=== PATIENT | female | born 1965 | race Caucasian/White ===

== ENCOUNTER 2020-04-11 12:46 | Inpatient (IN) | payer OTHER ==
[~2020-04-11] VITALS: Ht 162.6 cm; Wt 105.7 kg
[2020-04-11] MEDS ORDERED: ASPIRIN 325 MG TABLET PO ONE (13:00)
[2020-04-11] MEDS ORDERED: IV NORMAL SALINE 1000ML BAG 1,000 ML IV ONE (13:00)
[2020-04-11] MEDS ORDERED: DEXAMETHASONE SOD PHOS 4 MG/ML VIAL IVP ONE (13:00)
[2020-04-11] MEDS ORDERED: diphenhydrAMINE 50 MG/ML VIAL IVP ONE (13:15)
[2020-04-11] MEDS ORDERED: METOCLOPRAMIDE HCL 10 MG/2 ML VIAL. IVP ONE (13:15)
[2020-04-11] MEDS ORDERED: DEXAMETHASONE SOD PHOS 20 MG/5 ML VIAL. ONE (13:16)
[2020-04-11 13:31] LABS: BASO # 0.1 x10^3/uL (0.0-0.2); BASO % 1 % (0-3); EOS # 0.1 x10^3/uL (0.0-0.7); EOS % 1 % (0-3); HEMATOCRIT 42.8 % (36.0-47.0); HEMOGLOBIN 14.4 g/dL (12.0-15.5); LYMPH # 1.4 x10^3/uL (1.0-4.8); LYMPH % 13 % (24-48); MEAN CORPUSCULAR HEMOGLOBIN 28 pg (25-35); MEAN CORPUSCULAR HGB CONC 34 g/dL (31-37); MEAN CORPUSCULAR VOLUME 82 fL (79-100); MONO # 0.5 x10^3/uL (0.0-1.1); MONO % 5 % (0-9); NEUT # 8.9 x10^3/uL (1.8-7.7); NEUT % 81 % (31-73); PLATELET COUNT 281 x10^3/uL (140-400); RED BLOOD COUNT 5.23 x10^6/uL (3.50-5.40); RED CELL DISTRIBUTION WIDTH 13.9 % (11.5-14.5)
[2020-04-11 13:43] LABS: CALCIUM 9.3 mg/dL (8.5-10.1); CREATININE 0.8 mg/dL (0.6-1.0); GFR 75.3; POTASSIUM 3.2 mmol/L (3.5-5.1)
[2020-04-11 13:49] LABS: ALBUMIN 4.2 g/dL (3.4-5.0); ALBUMIN/GLOBULIN RATIO 1.1 (1.0-1.7); TOTAL BILIRUBIN 0.6 mg/dL (0.2-1.0); TOTAL PROTEIN 8.1 g/dL (6.4-8.2)
[2020-04-11 13:54] LABS: BILIRUBIN,URINE NEGATIVE (NEG); CLARITY,URINE CLEAR; COLOR,URINE YELLOW; NITRITE,URINE NEGATIVE (NEG); PH,URINE 8.5 (<5.0-8.0); PROTEIN,URINE NEGATIVE (NEG-TRACE); UROBILINOGEN,URINE 0.2 mg/dL (0.2 mg/dL)
[2020-04-11 14:04] LABS: BACTERIA,URINE FEW /HPF (0-FEW); RBC,URINE 0 /HPF (0-2); WBC,URINE RARE /HPF (0-4)
[2020-04-11] MEDS ORDERED: ONDANSETRON PF 4 MG/2 ML VIAL. ONE (14:28)
[2020-04-11] MEDS ORDERED: ONDANSETRON PF 4 MG/2 ML VIAL. IVP ONE (14:30)
[2020-04-11] MEDS ORDERED: POTASSIUM CHLORIDE 20 MEQ TABLET.ER. PO ONE ×2 (14:42→14:45)
--- NOTE | 2020-04-11 14:42 | PHYS DOC ---
Past Medical History Past Medical History: Anxiety, Cancer, COPD, Depression, Hypertension, Other Additional Past Medical Histor: endometriosis; Ovarian CA;former substance abuser, clean for 14 years. Past Surgical History: Cholecystectomy, , Hysterectomy Smoking Status: Former Smoker Alcohol Use: Sober Social History Narrative: former user, clean for 14 years. General Adult EDM: Chief Complaint: CHEST PAIN HPI: HPI: Patient is a 54 year old female presents with report of sternal chest pain x3 days. Patient reports associated nausea and vomiting. Reports was seen at on Saturday for similar and reports was worked up and subsequently sent home. Patient reports the nausea and vomiting returned along with the chest pain and therefore presents today for further evaluation. Reports some fatigue and malaise. Reports some associated headache. Denies fever or chills. Denies known exposure to COVID-19. Denies trauma. Denies leg swelling or calf tenderness. Patient does report pain is pleuritic in nature. Patient does report cardiac risk factors of family history of GA in her mother as well as hypertension. Denies history or family history of DVT/PE. Review of Systems: Review of Systems: Constitutional: Denies fever or chills; reports generalized malaise and fatigue Eyes: Denies redness or eye pain HENT: Denies nasal congestion or sore throat Respiratory: Reports cough and shortness of breath Cardiovascular: Reports chest pain and palpitations GI: Reports nausea and vomiting : Denies dysuria or hematuria Musculoskeletal: Denies back pain or joint pain Integument: Denies rash or skin lesions Neurologic: Reports headache; denies focal weakness or sensory changes Complete systems were reviewed and found to be within normal limits, except as documented in this note. Heart Score: HEART Score for Chest Pain: HEART Score for Chest Pain Response (Comments) Value History Moderately Suspicious 1 ECG Normal 0 Age >45 - < 65 1 Risk Factors 1 or 2 Risk Factors 1 Troponin < Normal Limit 0 Total 3 Risk Factors: Risk Factors: DM, Current or recent (<one month) smoker, HTN, HLP, family history of CAD, obesity. Risk Scores: Score 0 - 3: 2.5% MACE over next 6 weeks - Discharge Home Score 4 - 6: 20.3% MACE over next 6 weeks - Admit for Clinical Observation Score 7 - 10: 72.7% MACE over next 6 weeks - Early Invasive Strategies Current Medications: Current Medications Medications (Trade) Dose Ordered Sig/Alberto Start Time Stop Time Status Last Admin Dose Admin Aspirin (Lina Aspirin) 325 mg 1X ONCE 04/11/20 13:00 04/11/20 13:24 DC 04/11/20 13:23 325 MG Dexamethasone Sodium Phosphate (Decadron) 20 mg STK-MED ONCE 04/11/20 13:16 04/11/20 13:16 DC Diphenhydramine HCl (Benadryl) 25 mg 1X ONCE 04/11/20 13:15 04/11/20 13:24 DC 04/11/20 13:24 25 MG Metoclopramide HCl (Reglan Vial) 10 mg 1X ONCE 04/11/20 13:15 04/11/20 13:24 DC 04/11/20 13:24 10 MG Ondansetron HCl (Zofran) 4 mg STK-MED ONCE 04/11/20 14:28 04/11/20 14:28 DC Sodium Chloride 1,000 ml @ 1,000 mls/hr 1X ONCE 04/11/20 13:00 04/11/20 13:59 DC 04/11/20 13:23 1,000 MLS/HR Allergies: Allergies: Allergies Coded Allergies Type Severity Reaction Last Updated Verified acetaminophen Allergy Severe SWELLING 04/11/20 Yes codeine Allergy Severe SWELLING 04/11/20 Yes oxycodone Allergy Severe SWELLING 04/11/20 Yes Penicillins Allergy Intermediate 04/11/20 Yes hydrocodone Allergy Intermediate ALL OPIATES 04/11/20 Yes Physical Exam: PE: Constitutional: Well developed, well nourished, no acute distress, non-toxic appearance HENT: Normocephalic, atraumatic Eyes: PERRL, EOMI, conjunctiva normal, no discharge Neck: Normal range of motion, no tenderness, supple Lungs & Thorax: No respiratory distress, equal chest rise and fall Abdomen: Soft, no tenderness, no guarding/rebound tenderness/distention Skin: Warm, dry, no erythema, no rash Extremities: No tenderness, ROM intact, no edema Neurologic: Alert and oriented X 3, no focal deficits noted Psychologic: Affect normal, judgment normal Current Patient Data: Labs: Laboratory Tests Test 04/11/20 13:06 04/11/20 13:30 White Blood Count 11.0 x10^3/uL (4.0-11.0) Red Blood Count 5.23 x10^6/uL (3.50-5.40) Hemoglobin 14.4 g/dL (12.0-15.5) Hematocrit 42.8 % (36.0-47.0) Mean Corpuscular Volume 82 fL (79-100) Mean Corpuscular Hemoglobin 28 pg (25-35) Mean Corpuscular Hemoglobin Concent 34 g/dL (31-37) Red Cell Distribution Width 13.9 % (11.5-14.5) Platelet Count 281 x10^3/uL (140-400) Neutrophils (%) (Auto) 81 % (31-73) H Lymphocytes (%) (Auto) 13 % (24-48) L Monocytes (%) (Auto) 5 % (0-9) Eosinophils (%) (Auto) 1 % (0-3) Basophils (%) (Auto) 1 % (0-3) Neutrophils # (Auto) 8.9 x10^3/uL (1.8-7.7) H Lymphocytes # (Auto) 1.4 x10^3/uL (1.0-4.8) Monocytes # (Auto) 0.5 x10^3/uL (0.0-1.1) Eosinophils # (Auto) 0.1 x10^3/uL (0.0-0.7) Basophils # (Auto) 0.1 x10^3/uL (0.0-0.2) D-Dimer (Suzan) 0.30 ug/mlFEU (0.00-0.50) Sodium Level 133 mmol/L (136-145) L Potassium Level 3.2 mmol/L (3.5-5.1) L Chloride Level 98 mmol/L (98-107) Carbon Dioxide Level 23 mmol/L (21-32) Anion Gap 12 (6-14) Blood Urea Nitrogen 17 mg/dL (7-20) Creatinine 0.8 mg/dL (0.6-1.0) Estimated GFR (Cockcroft-Gault) 75.3 BUN/Creatinine Ratio 21 (6-20) H Glucose Level 134 mg/dL (70-99) H Calcium Level 9.3 mg/dL (8.5-10.1) Magnesium Level 2.0 mg/dL (1.8-2.4) Total Bilirubin 0.6 mg/dL (0.2-1.0) Aspartate Amino Transferase (AST) 21 U/L (15-37) Alanine Aminotransferase (ALT) 29 U/L (14-59) Alkaline Phosphatase 117 U/L (46-116) H Creatine Kinase 190 U/L (26-192) Creatine Kinase MB (Mass) 1.0 ng/mL (0.0-3.6) Creatine Kinase MB Relative Index 0.5 % (0-4) Troponin I Quantitative < 0.017 ng/mL (0.000-0.055) Total Protein 8.1 g/dL (6.4-8.2) Albumin 4.2 g/dL (3.4-5.0) Albumin/Globulin Ratio 1.1 (1.0-1.7) Lipase 88 U/L (73-393) Urine Collection Type Unknown Urine Color Yellow Urine Clarity Clear Urine pH 8.5 (<5.0-8.0) Urine Specific Morgan 1.010 (1.000-1.030) Urine Protein Negative mg/dL (NEG-TRACE) Urine Glucose (UA) Negative mg/dL (NEG) Urine Ketones (Stick) 15 mg/dL (NEG) Urine Blood Negative (NEG) Urine Nitrite Negative (NEG) Urine Bilirubin Negative (NEG) Urine Urobilinogen Dipstick 0.2 mg/dL (0.2 mg/dL) Urine Leukocyte Esterase Trace (NEG) Urine RBC 0 /HPF (0-2) Urine WBC Rare /HPF (0-4) Urine Squamous Epithelial Cells Occ /LPF Urine Bacteria Few /HPF (0-FEW) Laboratory Tests 04/11/20 13:06 Laboratory Tests 04/11/20 13:06 Vital Signs: Vital Signs Date Time Temp Pulse Resp B/P (MAP) Pulse Ox O2 Delivery O2 Flow Rate FiO2 04/11/20 12:55 97.7 74 20 200/108 (138) 100 Room Air 97.7 EKG: EKG: @1257 NSR at 71bpm, NO ST elevation, Q wave I-II and V4-V6, QRS 98ms, QT/QTc 422/459ms Radiology/Procedures: Radiology/Procedures: PROCEDURE: CHEST AP ONLY Examination: CHEST AP ONLY History: Reason: chest pain / Spl. Instructions: / History: Comparison: None. Findings: AP portable upright frontal view of the chest was obtained. Postoperative cervical spinal fusion noted. The cardiomediastinal silhouette is normal. Lungs are clear. Calcified granulomatous are present. Largest of these overlies the right lower lung field measuring 1.4 cm diameter. There is no pneumothorax. No pleural effusion is appreciated. No acute bone abnormality. IMPRESSION: No acute cardiopulmonary process. Electronically signed by: Vernon Coronado MD (04/11/2020 2:58 PM) [facility] Course & Med Decision Making: Course & Med Decision Making Pertinent Labs and Imaging studies reviewed. (See chart for details) Patient with significant cardiac risk factors presents with chest pain with associated nausea and vomiting. Patient also having viral type symptoms. Patient denies known exposure to COVID-19. This is a second work-up for similar as patient had previously been seen at . EKG stable. Labs obtained and po sted to chart. Initial troponin within normal limits. D-dimer also within normal limits. Hypokalemia addressed. Chest x-ray without acute process. Covid testing pending. Hypertension also requiring medications. HEART score 3 Patient requiring admission for further evaluation and treatment. Discussed with Dr. Dang (PCP) who is in agreement with observation admission. Discussed findings and plan with patient, who acknowledges understanding and agreement. COVID-19 CRITERIA: The patient was evaluated during the global COVID-19 pandemic, and that diagnosis was suspected/considered upon their initial presentation. Their evaluation, treatment and testing was consistent with current guidelines for patients who present with complaints or symptoms that may be related to COVID-19. Saad Disclaimer: Draglucretia Disclaimer: This electronic medical record was generated, in whole or in part, using a voice recognition dictation system. Departure Departure Impression: Primary Impression: Chest pain Qualified Codes: R07.9 - Chest pain, unspecified Additional Impressions: Suspected 2019 novel coronavirus infection Hypokalemia Hypertensive urgency Nausea & vomiting Qualified Codes: R11.2 - Nausea with vomiting, unspecified Disposition: ADMITTED INPT THIS HOSP Admitting Physician: Anderson Dang Condition: STABLE Referrals: ANDERSON DANG MD (PCP) COVID-19 Assessment: COVID-19 Patient Risks: Age 65 or older: No Sign of co-morbidity: Yes Exp to person + for COVID: No Exp to PUI: No Travel from affected area: No Lower respiratory symptoms: Yes Fever: Yes Other: Yes PPE Use: Full PPE with N95 mask or PAPR: Yes Critical Care Time Critical care time was 30 minutes which includes time at bedside, spent in discussion of patient's care with specialists and/or family members, with interpretation of laboratory and/or radiological studies and is exclusive of procedures. KAVITA MARIEE DO Apr 11, 2020 14:42
--- NOTE | 2020-04-11 14:44 | EKG ---
[facility] [address] [place] [address] Test Date: 2020-04-11 Test Time: 12:57:32 Pat Name: TE MCCRAY Department: Room: Gender: F Maternity Floor Supervisor: ARIELLA : [id number] Requested By: KAVITA MARIEE Order Number: [id number] Reading MD: Measurements Intervals [place] Rate: 71 P: 101 UT: 150 QRS: 27 QRSD: 98 T: 50 QT: 422 QTc: 459 Interpretive Statements SINUS RHYTHM QRS(T) CONTOUR ABNORMALITY CONSIDER ANTEROLATERAL MYOCARDIAL DAMAGE POSSIBLY ABNORMAL ECG RI6.01 No previous ECG available for comparison
[2020-04-11] MEDS ORDERED: ONDANSETRON PF 4 MG/2 ML VIAL. IV PRN (14:45)
[2020-04-11] MEDS ORDERED: LABETALOL 20 MG/4 ML DISP.SYRIN. IVP ONE (14:45)
--- NOTE | 2020-04-11 15:00 | RAD ---
Examination: CHEST AP ONLY History: Reason: chest pain / Spl. Instructions: / History: Comparison: None. Findings: AP portable upright frontal view of the chest was obtained. Postoperative cervical spinal fusion noted. The cardiomediastinal silhouette is normal. Lungs are clear. Calcified granulomatous are present. Largest of these overlies the right lower lung field measuring 1.4 cm diameter. There is no pneumothorax. No pleural effusion is appreciated. No acute bone abnormality. IMPRESSION: No acute cardiopulmonary process. Electronically signed by: Vernon Coronado MD (04/11/2020 2:58 PM) [facility]
[2020-04-11] MEDS ORDERED: PROCHLORPERAZINE 10 MG/2 ML VIAL. IV ONE (15:30)
[2020-04-11] MEDS: LABETALOL 20 MG/4 ML DISP.SYRIN. IVP PRN ×2 (16:37→20:44)
[2020-04-11 21:15] VITALS: BP 170/82
[2020-04-11 23:31] VITALS: BP 145/87
[2020-04-12] VITALS (7 sets, daily range): BP systolic 118–185; BP diastolic 62–87
[2020-04-12] MEDS: fentaNYL PF VIAL 100 MCG/2 ML VIAL IV PRN ×3 (07:33→21:08)
[2020-04-12] MEDS ORDERED: NAPR1TAB25 PO (07:36)
[2020-04-12] MEDS ORDERED: NAPR-514 PO (07:36)
[2020-04-12] MEDS ORDERED: AMLO-187 PO (07:36)
[2020-04-12] MEDS ORDERED: SERT50TA PO (07:36)
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
[2020-04-12] MEDS: amLODIPine BESYLATE 10 MG TABLET PO SCH (09:00)
--- NOTE | 2020-04-12 09:15 | PDOC2 ---
AMANDEEP ZEPEDA GREENBELT 04/12/20 0915: CARDIAC CONSULT DATE OF CONSULT Date of Consult DATE: 04/12/20 TIME: 09:10 REASON FOR CONSULT Reason for Consult: Chest pain REFERRING PHYSICIAN Referring Physician: Dr. Snow SOURCE Source: Chart review, Patient HISTORY OF PRESENT ILLNESS HISTORY OF PRESENT ILLNESS This is a 54 yo female who presented secondary to vomiting and chest pain. Also reports fatigue, malaise, and CORTEZ. Patient reports she began having nausea/vomiting this past Saturday. Vomiting persister so she went to for further evaluation. Reports having abdominal US and other workup, which was reportedly unrevealing. Mills well Saturday and Saturday, but again developed nausea/vomiting again on Saturday. Began has pressure in her central chest/epigastric region. Radiates through to her back. No associated dizziness, palpitations, diaphoresis, or SOA. Pain seems to be worse with deep breathing and with certain movements/activity. No known COVID exposure or fevers. Does report h/o H. pylori and PUD. Most recent EGD was earlier this year. PAST MEDICAL HISTORY Cardiovascular: HTN Pulmonary: COPD, Other (WELL[place]- untreated. ) GI: GERD, Peptic Ulcer disease Heme/Onc: Cancer (ovarian ) Psych: Anxiety, Bipolar, Depression Musculoskeletal: Osteoarthritis PAST SURGICAL HISTORY Past Surgical History: Cholecystectomy, Hernia Repair, Hysterectomy, Other (back surgery ) FAMILY HISTORY Family History: Heart Disease, Hypertension SOCIAL HISTORY Smoke: Quit ALCOHOL: none Drugs: None (H/o meth use. Clean since 2005) Lives: with Family CURRENT MEDICATIONS CURRENT MEDICATIONS Current Medications Medications (Trade) Dose Ordered Sig/Alberto Route PRN Reason Start Time Stop Time Status Last Admin Dose Admin Sodium Chloride 1,000 ml @ 1,000 mls/hr 1X ONCE IV 04/11/20 13:00 04/11/20 13:59 DC 04/11/20 13:23 Aspirin (Lina Aspirin) 325 mg 1X ONCE PO 04/11/20 13:00 04/11/20 13:24 DC 04/11/20 13:23 Dexamethasone Sodium Phosphate (Decadron) 10 mg 1X ONCE IVP 04/11/20 13:00 04/11/20 13:24 DC 04/11/20 13:41 Metoclopramide HCl (Reglan Vial) 10 mg 1X ONCE IVP 04/11/20 13:15 04/11/20 13:24 DC 04/11/20 13:24 Diphenhydramine HCl (Benadryl) 25 mg 1X ONCE IVP 04/11/20 13:15 04/11/20 13:24 DC 04/11/20 13:24 Ondansetron HCl (Zofran) 4 mg 1X ONCE IVP 04/11/20 14:30 04/11/20 14:36 DC 04/11/20 14:32 Labetalol HCl (Normodyne Iv Push) 10 mg 1X ONCE IVP 04/11/20 14:45 04/11/20 14:47 DC 04/11/20 14:45 Potassium Chloride (Klor-Con) 40 meq 1X ONCE PO 04/11/20 14:45 04/11/20 14:47 DC 04/11/20 14:53 Fentanyl Citrate (Fentanyl 2ml Vial) 25 mcg PRN Q2HR PRN IV PAIN 04/11/20 14:45 04/12/20 07:33 Labetalol HCl (Normodyne Iv Push) 10 mg PRN Q2HR PRN IVP HYPERTENSION 04/11/20 15:15 04/11/20 20:44 Prochlorperazine Edisylate (Compazine) 10 mg 1X ONCE IV 04/11/20 15:30 04/11/20 15:31 DC 04/11/20 16:07 ALLERGIES ALLERGIES: Coded Allergies: acetaminophen (Verified Allergy, Severe, SWELLING, 04/11/20) codeine (Verified Allergy, Severe, SWELLING, 04/11/20) oxycodone (Verified Allergy, Severe, SWELLING, 04/11/20) Penicillins (Verified Allergy, Intermediate, 04/11/20) hydrocodone (Verified Allergy, Intermediate, ALL OPIATES, 04/11/20) Swelling ROS Review of System 14 point ROS conducted with pertinent positives noted above in HPI PHYSICAL EXAM General: Alert, Oriented X3, Cooperative, No acute distress HEENT: Atraumatic, Mucous membr. moist/pink Lungs: Clear to auscultation Heart: Regular rate, Normal S1, Normal S2 Abdomen: Normal bowel sounds, Soft, No tenderness (epigastric tenderness ) Extremities: No edema, Normal pulses Skin: No significant lesion Neuro: Normal speech, Cranial nerves 3-12 NL Psych/Mental Status: Mental status NL, Mood NL MUSCULOSKELETAL: Osteoarthritic changes both hands VITALS/I&O VITALS/I&O: Vital Signs Date Time Temp Pulse Resp B/P (MAP) Pulse Ox O2 Delivery O2 Flow Rate FiO2 04/12/20 07:33 17 Room Air 04/12/20 02:07 98.2 71 118/69 (85) 95 98.2 I & O 04/11/20 04/11/20 04/12/20 15:00 23:00 07:00 Intake Total 1000 ml 50 ml Balance 1000 ml 50 ml LABS Lab: Laboratory Tests Test 04/11/20 13:06 04/11/20 13:30 04/11/20 17:43 04/11/20 20:40 White Blood Count 11.0 x10^3/uL (4.0-11.0) Red Blood Count 5.23 x10^6/uL (3.50-5.40) Hemoglobin 14.4 g/dL (12.0-15.5) Hematocrit 42.8 % (36.0-47.0) Mean Corpuscular Volume 82 fL (79-100) Mean Corpuscular Hemoglobin 28 pg (25-35) Mean Corpuscular Hemoglobin Concent 34 g/dL (31-37) Red Cell Distribution Width 13.9 % (11.5-14.5) Platelet Count 281 x10^3/uL (140-400) Neutrophils (%) (Auto) 81 % (31-73) H Lymphocytes (%) (Auto) 13 % (24-48) L Monocytes (%) (Auto) 5 % (0-9) Eosinophils (%) (Auto) 1 % (0-3) Basophils (%) (Auto) 1 % (0-3) Neutrophils # (Auto) 8.9 x10^3/uL (1.8-7.7) H Lymphocytes # (Auto) 1.4 x10^3/uL (1.0-4.8) Monocytes # (Auto) 0.5 x10^3/uL (0.0-1.1) Eosinophils # (Auto) 0.1 x10^3/uL (0.0-0.7) Basophils # (Auto) 0.1 x10^3/uL (0.0-0.2) D-Dimer (Suzan) 0.30 ug/mlFEU (0.00-0.50) Sodium Level 133 mmol/L (136-145) L Potassium Level 3.2 mmol/L (3.5-5.1) L Chloride Level 98 mmol/L (98-107) Carbon Dioxide Level 23 mmol/L (21-32) Anion Gap 12 (6-14) Blood Urea Nitrogen 17 mg/dL (7-20) Creatinine 0.8 mg/dL (0.6-1.0) Estimated GFR (Cockcroft-Gault) 75.3 BUN/Creatinine Ratio 21 (6-20) H Glucose Level 134 mg/dL (70-99) H Calcium Level 9.3 mg/dL (8.5-10.1) Magnesium Level 2.0 mg/dL (1.8-2.4) Total Bilirubin 0.6 mg/dL (0.2-1.0) Aspartate Amino Transferase (AST) 21 U/L (15-37) Alanine Aminotransferase (ALT) 29 U/L (14-59) Alkaline Phosphatase 117 U/L (46-116) H Creatine Kinase 190 U/L (26-192) Creatine Kinase MB (Mass) 1.0 ng/mL (0.0-3.6) Creatine Kinase MB Relative Index 0.5 % (0-4) Troponin I Quantitative < 0.017 ng/mL (0.000-0.055) 0.082 ng/mL (0.000-0.055) 0.094 ng/mL (0.000-0.055) Total Protein 8.1 g/dL (6.4-8.2) Albumin 4.2 g/dL (3.4-5.0) Albumin/Globulin Ratio 1.1 (1.0-1.7) Lipase 88 U/L (73-393) Urine Collection Type Unknown Urine Color Yellow Urine Clarity Clear Urine pH 8.5 (<5.0-8.0) Urine Specific Julian 1.010 (1.000-1.030) Urine Protein Negative mg/dL (NEG-TRACE) Urine Glucose (UA) Negative mg/dL (NEG) Urine Ketones (Stick) 15 mg/dL (NEG) Urine Blood Negative (NEG) Urine Nitrite Negative (NEG) Urine Bilirubin Negative (NEG) Urine Urobilinogen Dipstick 0.2 mg/dL (0.2 mg/dL) Urine Leukocyte Esterase Trace (NEG) Urine RBC 0 /HPF (0-2) Urine WBC Rare /HPF (0-4) Urine Squamous Epithelial Cells Occ /LPF Urine Bacteria Few /HPF (0-FEW) Laboratory Tests 04/11/20 13:06 Laboratory Tests 04/11/20 13:06 ASSESSMENT/PLAN ASSESSMENT/PLAN 1. Chest pain, atypical. Possibly GI related 2. Hypertensive urgency; better controlled 3. Mild troponin elevation; 0.09. Possibly type II, demand ischemic in setting of #2. 4. Nausea/vomiting 5. [place]. untreated 6. GERD, PUD, H. pylori; PPI 7. Hypokalemia; replaced 8. PUI; COVID PCR pending Recommendations Repeat troponin Add ASA Lipids Will try GI cocktails Echo if COVID negative Outpatient ischemic evaluation Consider outpatient sleep study. LACI FAGAN MD 04/12/20 9137: CARDIAC CONSULT ASSESSMENT/PLAN ASSESSMENT/PLAN Patient seen and evaluated Atypical chest pain. No significant elevation in troponin with a peak of 0.09 with possible mild demand ischemia secondary to severe hypertension. Echo if Covid negative. Outpatient ischemia work-up. Hypertensive urgency. Improved control on present medications. We will continue medications and monitor. Nausea and vomiting. Improved. History of GERD. As per the primary service. Obstructive sleep apnea. AMANDEEP ZEPEDA APRN Apr 12, 2020 09:15 LACI FAGAN MD Apr 12, 2020 16:55
[2020-04-12 10:02] LABS: BASO # 0.1 x10^3/uL (0.0-0.2); BASO % 1 % (0-3); EOS % 0 % (0-3); HEMATOCRIT 40.6 % (36.0-47.0); HEMOGLOBIN 13.6 g/dL (12.0-15.5); LYMPH # 1.5 x10^3/uL (1.0-4.8); LYMPH % 14 % (24-48); MEAN CORPUSCULAR HEMOGLOBIN 28 pg (25-35); MEAN CORPUSCULAR HGB CONC 34 g/dL (31-37); MEAN CORPUSCULAR VOLUME 82 fL (79-100); MONO # 0.6 x10^3/uL (0.0-1.1); MONO % 6 % (0-9); NEUT # 8.3 x10^3/uL (1.8-7.7); NEUT % 79 % (31-73); PLATELET COUNT 287 x10^3/uL (140-400); RED BLOOD COUNT 4.93 x10^6/uL (3.50-5.40); WHITE BLOOD COUNT 10.4 x10^3/uL (4.0-11.0)
[2020-04-12 10:19] LABS: CALCIUM 9.3 mg/dL (8.5-10.1); CREATININE 0.8 mg/dL (0.6-1.0); GFR 75.3; POTASSIUM 4.1 mmol/L (3.5-5.1)
[2020-04-12 10:28] LABS: CHOLESTEROL/HDL RATIO 3.6
[2020-04-12] MEDS ORDERED: LIDO:MAALOX 1:1 20 ML SINGLE DOSE. SWSW ONE (13:00)
--- NOTE | 2020-04-12 16:58 | NUR ---
SW following for discharge planning. Spoke with RN and reviewed chart. Pt from home with spouse. Pt on room air, cardiac diet, IV pain medication. Pt COVID pending. Spoke with patient and discharge plan is home, self-care. Pt will likely discharge home today, 04/12.
[2020-04-12] MEDS: ALPRAZolam 0.5 MG TABLET PO PRN (18:36)
[2020-04-12] MEDS: SERTRALINE 50 MG TABLET. PO SCH (21:08)
[2020-04-13 03:00] VITALS: BP 120/67
[2020-04-13 07:00] VITALS: BP 143/74
--- NOTE | 2020-04-13 07:43 | PDOC ---
SUBJECTIVE Subjective Doing better this am. Had significant anxiety yesterday afternoon and xanax was helpful. Denies chest pain, sob this morning. OBJECTIVE Objective Reviewed. Vital Signs Vital Signs Date Time Temp Pulse Resp B/P (MAP) Pulse Ox O2 Delivery O2 Flow Rate FiO2 04/13/20 03:00 97.0 58 18 120/67 (84) 100 97.0 04/12/20 23:00 97.7 63 18 168/84 (112) 98 97.7 04/12/20 21:38 Room Air 04/12/20 21:10 134/68 (90) 04/12/20 21:08 Room Air 04/12/20 18:20 58 18 145/62 (89) 99 Room Air 04/12/20 15:17 16 Room Air 04/12/20 15:05 97.5 74 20 185/87 (119) 98 Room Air 97.5 04/12/20 11:05 97.2 69 22 137/73 (94) 98 Room Air 97.2 PHYSICAL EXAM Physical Exam Alert, oriented, no acute distress EOMI, sclera non-icteric Neck supple RRR CTAB, no wheezes, crackles or rhonchi Soft, NT, ND, normal bowel sounds No edema, cyanosis. Normal capillary refill. Calm, cooperative, mood/affect within normal limits ASSESSMENT/PLAN Assessment/Plan Hypertensive urgency, resolved Atypical chest pain, slight bump in troponin with abnormal EKG COVID-19 ruled out Chronic back pain Obstructive sleep apnea GERD Anxiety Depression Cardiology following, plan for echo today and outpatient ischemic work up Likely dc later today COMMENT Lab Laboratory Tests Test 04/12/20 08:43 04/12/20 08:45 Sodium Level 139 mmol/L (136-145) Potassium Level 4.1 mmol/L (3.5-5.1) Chloride Level 104 mmol/L (98-107) Carbon Dioxide Level 25 mmol/L (21-32) Anion Gap 10 (6-14) Blood Urea Nitrogen 15 mg/dL (7-20) Creatinine 0.8 mg/dL (0.6-1.0) Estimated GFR (Cockcroft-Gault) 75.3 Glucose Level 108 mg/dL (70-99) Calcium Level 9.3 mg/dL (8.5-10.1) Troponin I Quantitative 0.030 ng/mL (0.000-0.055) Triglycerides Level 87 mg/dL (0-150) Cholesterol Level 236 mg/dL (0-200) LDL Cholesterol, Calculated 154 mg/dL (0-100) VLDL Cholesterol, Calculated 17 mg/dL (0-40) Non-HDL Cholesterol Calculated 171 mg/dL (0-129) HDL Cholesterol 65 mg/dL (40-60) Cholesterol/HDL Ratio 3.6 White Blood Count 10.4 x10^3/uL (4.0-11.0) Red Blood Count 4.93 x10^6/uL (3.50-5.40) Hemoglobin 13.6 g/dL (12.0-15.5) Hematocrit 40.6 % (36.0-47.0) Mean Corpuscular Volume 82 fL (79-100) Mean Corpuscular Hemoglobin 28 pg (25-35) Mean Corpuscular Hemoglobin Concent 34 g/dL (31-37) Red Cell Distribution Width 14.0 % (11.5-14.5) Platelet Count 287 x10^3/uL (140-400) Neutrophils (%) (Auto) 79 % (31-73) Lymphocytes (%) (Auto) 14 % (24-48) Monocytes (%) (Auto) 6 % (0-9) Eosinophils (%) (Auto) 0 % (0-3) Basophils (%) (Auto) 1 % (0-3) Neutrophils # (Auto) 8.3 x10^3/uL (1.8-7.7) Lymphocytes # (Auto) 1.5 x10^3/uL (1.0-4.8) Monocytes # (Auto) 0.6 x10^3/uL (0.0-1.1) Eosinophils # (Auto) 0.0 x10^3/uL (0.0-0.7) Basophils # (Auto) 0.1 x10^3/uL (0.0-0.2) Justifications for Admission Chest Pain Indications Poss tachycardia?: No Poss hypotension?: No Hemodynamically unstable?: No Respiratory Distress?: Yes Is patient at high risk?: Yes Justification for admission: Chest pain with severely uncontrolled hypertension, hypertensive urgency/emergency Other Justification ANDERSON DANG MD Apr 13, 2020 07:43
[2020-04-13] MEDS ORDERED: OMEP40CA45 PO (09:02)
[2020-04-13] MEDS ORDERED: ALPR0.5T6 PO (09:02)
[2020-04-13] MEDS: amLODIPine BESYLATE 10 MG TABLET PO SCH (09:12)
[2020-04-13] MEDS: ASPIRIN ENTERIC COATED 81 MG TABLET.DR. PO SCH (09:12)
[2020-04-13] MEDS: ONDANSETRON PF 4 MG/2 ML VIAL. IVP PRN ×3 (09:20→20:27)
[2020-04-13 10:46] VITALS: BP 131/62
--- NOTE | 2020-04-13 11:39 | PDOC ---
AMANDEEP ZEPEDA PIETRO 04/13/20 1139: CARDIO Progress Notes Date and Time Date of Service 04/13/20 Time of Evaluation 1130 Subjective Subjective: No shortness of breath, No Palpitations, Other (mild central chest pain ) Vitals Vitals Vital Signs Date Time Temp Pulse Resp B/P (MAP) Pulse Ox O2 Delivery O2 Flow Rate FiO2 04/13/20 10:46 98.0 56 16 131/62 (85) 99 98.0 04/12/20 21:38 Room Air Weight Weight [ ] Input and Output Intake and Output Intake and Output 04/13/20 07:00 # Voids 7 Microbiology Micro Microbiology 04/11/20 Urine Culture - Final, Complete Physical Exam HEENT: Neck Supple W Full Motion Chest: Symmetric LUNGS: Clear to Auscultation Heart: RRR Abdomen: Soft N/T Extremities: No Edema Neurology: alert, oriented, follow commands Assessment Assessment 1. Chest pain, atypical. Most probable GI in nature. Resolved with GI cocktail. Returned some this am 2. Hypertensive urgency; better controlled 3. Mild troponin elevation; 0.09. Possibly type II, demand ischemic in setting of #2. 4. Nausea/vomiting 5. [place]. untreated 6. GERD, PUD, H. pylori; PPI 7. Hypokalemia; replaced 8. PUI; COVID negative 9. Hyperlipidemia; LDL 154 Recommendations Echo to assess LV systolic funciton Add statin PPI Needs GI f/u Outpatient ischemic evaluation as arranged Consider outpatient sleep study. Follow up with Dr. Fagan as scheduled Justicifation of Admission Dx: Justifications for Admission: Justification of Admission Dx: Yes LACI FAGAN MD 04/13/20 1617: CARDIO Progress Notes Assessment Assessment Patient seen and evaluated I agree with our nurse practitioners assessment and plan. Chest pain, atypical. Most probable GI in nature. Resolved with GI cocktail. Continue medical treatment. Echo pending. Outpatient ischemia evaluation. Hypertensive urgency; better controlled Mild troponin elevation; 0.09. Possibly type II, demand ischemic in setting of #2. GERD, PUD, H. pylori; PPI PUI; COVID negative Hyperlipidemia; LDL 154. Statin. AMANDEEP ZEPEDA APRN Apr 13, 2020 11:39 LACI FAGAN MD Apr 13, 2020 16:17
[2020-04-13] MEDS ORDERED: KETOROLAC 30 MG/ML VIAL. IVP PRN (12:00)
[2020-04-13 15:00] VITALS: BP 217/104
--- NOTE | 2020-04-13 15:01 | NUR ---
SW following for discharge planning. Spoke with RN and reviewed chart. Spoke with pt again today. COVID result came back negative. Discharge plan remains home, self-care on oral medications and room air. No SW needs identified for discharge.
[2020-04-13] MEDS: LABETALOL 20 MG/4 ML DISP.SYRIN. IVP PRN (15:09)
[2020-04-13] MEDS: fentaNYL PF VIAL 100 MCG/2 ML VIAL IV PRN ×2 (15:21→20:24)
--- NOTE | 2020-04-13 16:47 | CARD ---
MR#: [id number] Date of Study: 04/13/2020 Ordering Physician: ANDERSON DANG, Referring Physician: ANDERSON DANG, Tech: Kirstin Aranda BRIELLE APPROVED REPORT EXAM: Two-dimensional and M-mode echocardiogram with Doppler and color Doppler. Other Information Quality : GoodHR: 58bpm Rhythm : NSR INDICATION Atypical chest pain. Hx: COPD, HTN 2D DIMENSIONS RVDd3.2 (2.9-3.5cm)IVSd1.0 (0.7-1.1cm) Aortic Root(2D)3.2 (2.0-3.7cm)LVDd5.0 (3.9-5.9cm) LVOT Diameter2.1 (1.8-2.4cm)PWd0.9 (0.7-1.1cm) LVDs3.4 (2.5-4.0cm)FS (%) 31.6 % SV69.5 mlLVEF(%)59.3 (>50%) Aortic Valve AoV [place].139.6cm/Lalo Peak GR.7.8mmHg LVOT [place].133.5cm/sAVA (VMAX)3.23cm2 Mitral Valve MV E Rwbwxihu609.6cm/sMV DECEL [id number] MV A Afzqhqvu16.0cm/sE/A Ratio1.2 MV A [id number] Pulmonary Valve PV Peak Zlbajbot51.0cm/s Tricuspid Valve RAP [id number] Pulmonary Vein S1 Qhorgbac71.0cm/sD2 Qafpckwg43.1cm/s PVa [id number] LEFT VENTRICLE The left ventricle is normal size. There is normal left ventricular wall thickness. Left ventricle sy stolic function is normal. The Ejection Fraction is 60-65%. There is normal LV segmental wall motion. Transmitral Doppler flow pattern is Grade II-pseudonormal filling dynamics. RIGHT VENTRICLE The right ventricle is normal size. The right ventricular systolic function is normal. ATRIA The left atrium size is normal. The right atrium size is normal. The interatrial septum is intact wit h no evidence for an atrial septal defect or patent foramen ovale as noted on 2-D or Doppler imaging. AORTIC VALVE The aortic valve is normal in structure and function. Doppler and Color Flow revealed no significant aortic regurgitation. There is no significant aortic valvular stenosis. MITRAL VALVE The mitral valve is normal in structure and function. There is no mitral valve stenosis. Doppler and Color-flow revealed trace mitral regurgitation. TRICUSPID VALVE The tricuspid valve is normal in structure and function. Doppler and Color Flow revealed no tricuspid valve regurgitation noted. Unable to assess PA pressures. There is no tricuspid valve stenosis. PULMONIC VALVE The pulmonary valve is normal in structure and function. Doppler and Color Flow revealed trace pulmon ic valvular regurgitation. GREAT VESSELS The aortic root is normal in size. The ascending aorta is normal in size. The IVC is normal in size a nd collapses >50% with inspiration. PERICARDIAL EFFUSION There is no evidence of significant pericardial effusion. Critical Notification Critical Value: No <Conclusion> Left ventricle systolic function is normal. The Ejection Fraction is 60-65%. There is normal LV segmental wall motion. Transmitral Doppler flow pattern is Grade II-pseudonormal filling dynamics. Doppler and Color-flow revealed trace mitral regurgitation. There is no evidence of significant pericardial effusion. Signed by : Matthew Allen, Electronically Approved : 04/13/2020 16:47:15
[2020-04-13 19:00] VITALS: BP 226/112
--- NOTE | 2020-04-13 19:06 | RAD ---
Examination: ABDOMEN COMPLETE History: Reason: nausea/vomiting/COVID NEGATIVE ATE LUNCH / Spl. Instructions: / History: Comparison/Correlation: None Findings: Upper abdominal ultrasound exam was performed. Mild fatty infiltration of the liver is present. No biliary dilatation. Cholecystectomy noted. Bile duct is unremarkable. Portal venous flow is unremarkable. Proximal pancreas is unremarkable. Distal pancreas is obscured by bowel gas. Spleen is unremarkable. Right kidney measures 11 cm x 4.8 cm x 2.9 cm. Left kidney measures 10.9 cm x 4.6 x 4.5 cm. No hydronephrosis. Renal contours and echotexture are unremarkable. Abdominal aorta is obscured by bowel gas distally. Proximal and mid abdominal aorta are unremarkable. No upper abdominal ascites. Partially visualized inferior vena cava is unremarkable. Impression: Mild fatty infiltration of the liver. No acute process. Electronically signed by: Vernon Coronado MD (04/13/2020 7:03 PM) [facility]
[2020-04-13] MEDS ORDERED: PROMETHAZINE 12.5 MG TABLET. PO PRN (20:00)
[2020-04-13] MEDS ORDERED: hydrALAZINE 20 MG/ML VIAL. IVP PRN (20:15)
[2020-04-13 23:00] VITALS: BP 202/100
[2020-04-13] MEDS: SERTRALINE 50 MG TABLET. PO SCH (23:02)
[2020-04-13] MEDS: ATORVASTATIN CALCIUM 20 MG TABLET PO SCH (23:02)
[2020-04-13] MEDS: ALPRAZolam 0.5 MG TABLET PO PRN (23:03)
[2020-04-14 02:17] VITALS: BP 200/87
[2020-04-14 04:10] LABS: HEMOGLOBIN A1C 5.2 % (4.8-5.6)
[2020-04-14 07:00] VITALS: BP 132/72
[2020-04-14 08:13] LABS: BASO # 0.1 x10^3/uL (0.0-0.2); BASO % 1 % (0-3); EOS % 0 % (0-3); HEMATOCRIT 46.1 % (36.0-47.0); HEMOGLOBIN 15.5 g/dL (12.0-15.5); LYMPH # 2.5 x10^3/uL (1.0-4.8); LYMPH % 18 % (24-48); MEAN CORPUSCULAR HEMOGLOBIN 28 pg (25-35); MEAN CORPUSCULAR HGB CONC 34 g/dL (31-37); MEAN CORPUSCULAR VOLUME 83 fL (79-100); MONO % 8 % (0-9); NEUT # 9.8 x10^3/uL (1.8-7.7); NEUT % 73 % (31-73); PLATELET COUNT 349 x10^3/uL (140-400); RED BLOOD COUNT 5.59 x10^6/uL (3.50-5.40); RED CELL DISTRIBUTION WIDTH 14.1 % (11.5-14.5); WHITE BLOOD COUNT 13.4 x10^3/uL (4.0-11.0)
[2020-04-14 08:20] LABS: CALCIUM 9.2 mg/dL (8.5-10.1); CREATININE 1.1 mg/dL (0.6-1.0); GFR 52.2; POTASSIUM 3.3 mmol/L (3.5-5.1)
--- NOTE | 2020-04-14 08:38 | PDOC ---
SUBJECTIVE Subjective Yesterday afternoon, after lunch, pt had recurrence of nausea and recurrent vomiting. BP became significantly elevated again, likely related to vomiting and she may have also had minimal BP meds that were absorbed d/t vomiting. Her last episode of vomiting was overnight, but she is cautious to eat anything today. An abd US was generally unremarkable. Pt has hx of previous cholecystectomy. OBJECTIVE Objective Reviewed. Vital Signs Vital Signs Date Time Temp Pulse Resp B/P (MAP) Pulse Ox O2 Delivery O2 Flow Rate FiO2 04/14/20 02:17 99.0 114 20 200/87 (124) 96 Room Air 2.0 99.0 04/13/20 23:00 98.7 82 18 202/100 (134) 96 Room Air 2.0 98.7 04/13/20 20:28 94 226/112 04/13/20 20:00 Room Air 04/13/20 19:00 97.5 90 20 226/112 (150) 98 Room Air 2.0 97.5 04/13/20 16:00 Room Air 04/13/20 15:21 99 04/13/20 15:09 214/104 04/13/20 15:00 98.0 68 24 217/104 (141) 100 Nasal Cannula 2.0 98.0 04/13/20 10:46 98.0 56 16 131/62 (85) 99 98.0 04/13/20 09:12 54 143/74 I & O Intake and Output 04/14/20 07:00 Intake Total 340 ml Balance 340 ml Intake Oral 340 ml PHYSICAL EXAM Physical Exam Alert, oriented, no acute distress EOMI, sclera non-icteric Neck supple RRR CTAB, no wheezes, crackles or rhonchi Soft, tender in the epigastrium, ND, normal bowel sounds No edema, cyanosis. Normal capillary refill. Calm, cooperative, mood/affect within normal limits ASSESSMENT/PLAN Assessment/Plan Hypertensive urgency Atypical chest pain, slight bump in troponin with abnormal EKG, will get outpt ischemic work up. COVID-19 ruled out Persistent nausea, vomiting, epigastric abd pain Chronic back pain Obstructive sleep apnea GERD Anxiety Depression Repeat labs, GI consult, clear liquid diet. Increase PPI to BID May need EGD, GES COMMENT Lab Laboratory Tests Test 04/14/20 07:55 White Blood Count 13.4 x10^3/uL (4.0-11.0) Red Blood Count 5.59 x10^6/uL (3.50-5.40) Hemoglobin 15.5 g/dL (12.0-15.5) Hematocrit 46.1 % (36.0-47.0) Mean Corpuscular Volume 83 fL (79-100) Mean Corpuscular Hemoglobin 28 pg (25-35) Mean Corpuscular Hemoglobin Concent 34 g/dL (31-37) Red Cell Distribution Width 14.1 % (11.5-14.5) Platelet Count 349 x10^3/uL (140-400) Neutrophils (%) (Auto) 73 % (31-73) Lymphocytes (%) (Auto) 18 % (24-48) Monocytes (%) (Auto) 8 % (0-9) Eosinophils (%) (Auto) 0 % (0-3) Basophils (%) (Auto) 1 % (0-3) Neutrophils # (Auto) 9.8 x10^3/uL (1.8-7.7) Lymphocytes # (Auto) 2.5 x10^3/uL (1.0-4.8) Monocytes # (Auto) 1.0 x10^3/uL (0.0-1.1) Eosinophils # (Auto) 0.0 x10^3/uL (0.0-0.7) Basophils # (Auto) 0.1 x10^3/uL (0.0-0.2) Sodium Level 134 mmol/L (136-145) Potassium Level 3.3 mmol/L (3.5-5.1) Chloride Level 98 mmol/L (98-107) Carbon Dioxide Level 24 mmol/L (21-32) Anion Gap 12 (6-14) Blood Urea Nitrogen 22 mg/dL (7-20) Creatinine 1.1 mg/dL (0.6-1.0) Estimated GFR (Cockcroft-Gault) 52.2 Glucose Level 120 mg/dL (70-99) Calcium Level 9.2 mg/dL (8.5-10.1) Justifications for Admission Chest Pain Indications Poss tachycardia?: No Poss hypotension?: No Hemodynamically unstable?: No Respiratory Distress?: Yes Is patient at high risk?: Yes Justification for admission: Chest pain with severely uncontrolled hypertension, hypertensive urgency/emergency Other Justification ANDERSON DANG MD Apr 14, 2020 08:38
[2020-04-14] MEDS ORDERED: POTASSIUM CL 40MEQ IN 0.9%NACL 1,000 ML IV ONE (09:00)
[2020-04-14] MEDS: ASPIRIN ENTERIC COATED 81 MG TABLET.DR. PO SCH (09:26)
[2020-04-14] MEDS: amLODIPine BESYLATE 10 MG TABLET PO SCH (09:26)
[2020-04-14] MEDS: LISINOPRIL 20 MG TABLET PO SCH (09:26)
[2020-04-14] MEDS: PANTOPRAZOLE IV PUSH 40 MG VIAL. IVP SCH ×2 (09:29→20:33)
[2020-04-14] MEDS: ONDANSETRON PF 4 MG/2 ML VIAL. IVP PRN (09:40)
[2020-04-14 11:00] VITALS: BP 142/69
--- NOTE | 2020-04-14 11:02 | PDOC ---
CARDIO Progress Notes Date and Time Date of Service 04/14/20 Time of Evaluation 1050 Subjective Subjective: No shortness of breath, No Palpitations, Other (vomiting yesterday afternoon following lunch ) Vitals Vitals Vital Signs Date Time Temp Pulse Resp B/P (MAP) Pulse Ox O2 Delivery O2 Flow Rate FiO2 04/14/20 09:26 106 132/72 04/14/20 08:00 Room Air 04/14/20 07:00 98.2 20 96 2.0 98.2 Weight Weight [ ] Input and Output Intake and Output Intake and Output 04/14/20 07:00 Intake Total 340 ml Balance 340 ml Intake Oral 340 ml Laboratory Labs Laboratory Tests Test 04/14/20 07:55 White Blood Count 13.4 x10^3/uL (4.0-11.0) Red Blood Count 5.59 x10^6/uL (3.50-5.40) Hemoglobin 15.5 g/dL (12.0-15.5) Hematocrit 46.1 % (36.0-47.0) Mean Corpuscular Volume 83 fL (79-100) Mean Corpuscular Hemoglobin 28 pg (25-35) Mean Corpuscular Hemoglobin Concent 34 g/dL (31-37) Red Cell Distribution Width 14.1 % (11.5-14.5) Platelet Count 349 x10^3/uL (140-400) Neutrophils (%) (Auto) 73 % (31-73) Lymphocytes (%) (Auto) 18 % (24-48) Monocytes (%) (Auto) 8 % (0-9) Eosinophils (%) (Auto) 0 % (0-3) Basophils (%) (Auto) 1 % (0-3) Neutrophils # (Auto) 9.8 x10^3/uL (1.8-7.7) Lymphocytes # (Auto) 2.5 x10^3/uL (1.0-4.8) Monocytes # (Auto) 1.0 x10^3/uL (0.0-1.1) Eosinophils # (Auto) 0.0 x10^3/uL (0.0-0.7) Basophils # (Auto) 0.1 x10^3/uL (0.0-0.2) Sodium Level 134 mmol/L (136-145) Potassium Level 3.3 mmol/L (3.5-5.1) Chloride Level 98 mmol/L (98-107) Carbon Dioxide Level 24 mmol/L (21-32) Anion Gap 12 (6-14) Blood Urea Nitrogen 22 mg/dL (7-20) Creatinine 1.1 mg/dL (0.6-1.0) Estimated GFR (Cockcroft-Gault) 52.2 Glucose Level 120 mg/dL (70-99) Calcium Level 9.2 mg/dL (8.5-10.1) Lipase 150 U/L (73-393) Microbiology Micro Microbiology 04/11/20 Urine Culture - Final, Complete Physical Exam HEENT: Neck Supple W Full Motion Chest: Symmetric LUNGS: Clear to Auscultation Heart: RRR Abdomen: Soft N/T Extremities: No Edema Neurology: alert, oriented, follow commands Assessment Assessment 1. Chest pain, atypical. Most probable GI in nature. Resolved with GI cocktail. 2. Hypertensive urgency; elevated yesterday with recurrent vomiting. now controlled 3. Mild troponin elevation; 0.09. Possibly type II, demand ischemic in setting of #2. Echo with preserved LV systolic function 4. Nausea/vomiting; recurrent following lunch yesterday 5. [place]. untreated 6. GERD, PUD, H. pylori; PPI 7. Hypokalemia; replaced 8. PUI; COVID negative 9. Hyperlipidemia; LDL 154 Recommendations Follow GI recs Outpatient ischemic evaluation as arranged Consider outpatient sleep study. Follow up with Dr. Downing as scheduled Justicifation of Admission Dx: Justifications for Admission: Justification of Admission Dx: Yes AMANDEEP ZEPEDA APRN Apr 14, 2020 11:02
[2020-04-14] MEDS ORDERED: BISACODYL 5 MG TABLET.DR. PO PRN (12:45)
--- NOTE | 2020-04-14 12:45 | PDOC2 ---
GI CONSULT Date of Service: DATE: 04/14/20 TIME: 12:32 Reason For Consult: persistent n/v HPI: HPI: 54 y/o female ill since Saturday w/ n/v. Says she was seen at ER - noted w/ HTN that improved w/ medication, reports CT and US were unremarkable, sent home. Ongoing issues and had some chest pain, came to [facility]. Noted w/ accelerated HTN, continued vomiting last night. GI cocktail apparently helped pain. None today and tolerating clear liquids. Reports EGD w/ Dr. Arboleda @ [facility] in summer 2019 for GERD - taking omeprazole since but stopped on Saturday in case that was making her sick. Checked with office - no procedure report there. Other notes suggest h/o PUD and H. pylori which she did not offer to me. Maybe mild epigastric discomfort. Stooled on Saturday, feels constipated now. No dysphagia, hematemesis, diarrhea, hematochezia, or melena. Lost some weight earlier this year, now stable. Thinks last colonoscopy in about 2016. S/p cholecystectomy. No liver, or pancreas history. Looks like IV PPI started this morning. 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) ROS: GEN: Denies fevers, chills, sweats HEENT: Denies blurred vision, sore throat CV: +CP RESP: Denies shortness of air, cough GI: Per HPI : Denies hematuria, dysuria ENDO: Denies weight changes NEURO: Denies confusion, dizziness MSK: Denies weakness, joint pain/swelling SKIN: Denies jaundice, pruritus Vitals: Vitals: Vital Signs Date Time Temp Pulse Resp B/P (MAP) Pulse Ox O2 Delivery O2 Flow Rate FiO2 04/14/20 11:00 99.1 72 20 142/69 (93) 97 Room Air 2.0 99.1 Labs: Labs: Laboratory Tests Test 04/14/20 07:55 White Blood Count 13.4 x10^3/uL (4.0-11.0) Red Blood Count 5.59 x10^6/uL (3.50-5.40) Hemoglobin 15.5 g/dL (12.0-15.5) Hematocrit 46.1 % (36.0-47.0) Mean Corpuscular Volume 83 fL (79-100) Mean Corpuscular Hemoglobin 28 pg (25-35) Mean Corpuscular Hemoglobin Concent 34 g/dL (31-37) Red Cell Distribution Width 14.1 % (11.5-14.5) Platelet Count 349 x10^3/uL (140-400) Neutrophils (%) (Auto) 73 % (31-73) Lymphocytes (%) (Auto) 18 % (24-48) Monocytes (%) (Auto) 8 % (0-9) Eosinophils (%) (Auto) 0 % (0-3) Basophils (%) (Auto) 1 % (0-3) Neutrophils # (Auto) 9.8 x10^3/uL (1.8-7.7) Lymphocytes # (Auto) 2.5 x10^3/uL (1.0-4.8) Monocytes # (Auto) 1.0 x10^3/uL (0.0-1.1) Eosinophils # (Auto) 0.0 x10^3/uL (0.0-0.7) Basophils # (Auto) 0.1 x10^3/uL (0.0-0.2) Sodium Level 134 mmol/L (136-145) Potassium Level 3.3 mmol/L (3.5-5.1) Chloride Level 98 mmol/L (98-107) Carbon Dioxide Level 24 mmol/L (21-32) Anion Gap 12 (6-14) Blood Urea Nitrogen 22 mg/dL (7-20) Creatinine 1.1 mg/dL (0.6-1.0) Estimated GFR (Cockcroft-Gault) 52.2 Glucose Level 120 mg/dL (70-99) Calcium Level 9.2 mg/dL (8.5-10.1) Lipase 150 U/L (73-393) URINE CULTURE Final Final >100,000 CFU/ML Three or more organisms isolated. Results consistent with colonization or contamination during the collection process. Recollection recommended using a method to minimize contamination. An ID and Sensitivity will be performed when one organism is predominant and a likely pathogen. Allergies: Coded Allergies: acetaminophen (Verified Allergy, Severe, SWELLING, 04/11/20) codeine (Verified Allergy, Severe, SWELLING, 04/11/20) oxycodone (Verified Allergy, Severe, SWELLING, 04/11/20) Penicillins (Verified Allergy, Intermediate, 04/11/20) hydrocodone (Verified Allergy, Intermediate, ALL OPIATES, 04/11/20) Swelling Medications: Current Medications Medications (Trade) Dose Ordered Sig/Alberto Route PRN Reason Start Time Stop Time Status Last Admin Dose Admin Atorvastatin Calcium (Lipitor) 20 mg QHS PO 04/13/20 21:00 04/13/20 23:02 Lorazepam (Ativan Inj) 0.5 mg PRN Q8HRS PRN IVP ANXIETY / AGITATION 04/13/20 17:45 04/13/20 17:56 Promethazine HCl (Phenergan) 12.5 mg PRN Q6HRS PRN PO NAUSEA/VOMITING 04/13/20 20:00 04/13/20 23:02 Hydralazine HCl (Apresoline Inj) 10 mg PRN Q4HRS PRN IVP SBP>160 04/13/20 20:15 04/13/20 20:28 Lisinopril (Prinivil) 20 mg DAILY PO 04/14/20 09:00 04/14/20 09:26 Potassium Chloride/Sodium Chloride 1,000 ml @ 150 mls/hr Q6H40M ONCE IV 04/14/20 09:00 04/14/20 15:39 04/14/20 09:30 Pantoprazole Sodium (PROTONIX VIAL for IV PUSH) 40 mg BID IVP 04/14/20 09:00 04/14/20 09:29 Imaging: Imaging: CXR IMPRESSION: No acute cardiopulmonary process. Abd US Impression: Mild fatty infiltration of the liver. No acute process. Echo <Conclusion> Left ventricle systolic function is normal. The Ejection Fraction is 60-65%. There is normal LV segmental wall motion. Transmitral Doppler flow pattern is Grade II-pseudonormal filling dynamics. Doppler and Color-flow revealed trace mitral regurgitation. There is no evidence of significant pericardial effusion. PE: GEN: NAD - was asleep HEENT: Atraumatic, PERRL LUNGS: CTAB HEART: RRR ABD: NABS, S/ND/NT EXTREMITY: No edema SKIN: No rashes, no jaundice NEURO/PSYCH: A & O 3 A/P: A/P: ACP, HTN, mildly elevated troponin - cardiology following, seems like plans for outpt ischemic eval N/v, epigastric discomfort GERD CRC screen - UTD Constipation S/p cholecystectomy COVID-19 negative 04/11 -- Agree w/ PPI. GI cocktail PRN. Okay to try advancing diet - she says she's not ready yet. N/v better today - ?improved w/ improved BP? Unable to review EGD from earlier this year. Add Miralax, etc for constipation. Other recs per Dr. Arboleda. HENRIETTA ERNST Apr 14, 2020 12:45
[2020-04-14] MEDS ORDERED: LIDO:MAALOX 1:1 20 ML SINGLE DOSE. PO PRN (13:00)
[2020-04-14 15:00] VITALS: BP 118/57
--- NOTE | 2020-04-14 17:07 | NUR ---
SW following for discharge planning. Spoke with RN and reviewed chart. Pt on a clear liquid diet. SW following but discharge plan remains home, self-care.
[2020-04-14] MEDS: IV NORMAL SALINE 1000ML BAG 1,000 ML IV SCH (17:13)
[2020-04-14] MEDS: fentaNYL PF VIAL 100 MCG/2 ML VIAL IV PRN (19:26)
[2020-04-14 19:40] VITALS: BP 90/59
[2020-04-14] MEDS: ATORVASTATIN CALCIUM 20 MG TABLET PO SCH (20:32)
[2020-04-14] MEDS: SERTRALINE 50 MG TABLET. PO SCH (20:32)
[2020-04-14] MEDS ORDERED: CYCLOBENZAPRINE 10 MG TABLET. PO PRN (20:45)
[2020-04-14 23:45] VITALS: BP 103/56
--- NOTE | 2020-04-15 00:10 | NUR ---
Patient transferred to room 519 per wheelchair accompanied by 6th floor staff, patient reports that she left a message on spouse's phone, notifying him of the transfer and room number, secured entrance monitor placed, reports to have her belongings, plan of care discussed, as NPO for am procedure
[2020-04-15] MEDS: ONDANSETRON PF 4 MG/2 ML VIAL. IVP PRN (00:33)
[2020-04-15] MEDS: IV NORMAL SALINE 1000ML BAG 1,000 ML IV SCH ×2 (00:33→16:31)
[2020-04-15 03:07] VITALS: BP 126/64
[2020-04-15 07:00] VITALS: BP 151/82
[2020-04-15 08:13] LABS: BASO # 0.1 x10^3/uL (0.0-0.2); BASO % 1 % (0-3); EOS # 0.1 x10^3/uL (0.0-0.7); EOS % 1 % (0-3); HEMATOCRIT 38.8 % (36.0-47.0); HEMOGLOBIN 12.7 g/dL (12.0-15.5); LYMPH # 2.2 x10^3/uL (1.0-4.8); LYMPH % 25 % (24-48); MEAN CORPUSCULAR HEMOGLOBIN 27 pg (25-35); MEAN CORPUSCULAR HGB CONC 33 g/dL (31-37); MEAN CORPUSCULAR VOLUME 83 fL (79-100); MONO # 0.6 x10^3/uL (0.0-1.1); MONO % 7 % (0-9); NEUT # 5.7 x10^3/uL (1.8-7.7); NEUT % 66 % (31-73); PLATELET COUNT 248 x10^3/uL (140-400); RED BLOOD COUNT 4.66 x10^6/uL (3.50-5.40); RED CELL DISTRIBUTION WIDTH 14.2 % (11.5-14.5); WHITE BLOOD COUNT 8.7 x10^3/uL (4.0-11.0)
[2020-04-15] MEDS ORDERED: BARIUM SULFATE 60% 355 ML SUSP PO ONE (08:45)
[2020-04-15 08:53] LABS: CREATININE 1.1 mg/dL (0.6-1.0); GFR 52.2; TOTAL BILIRUBIN 0.7 mg/dL (0.2-1.0); TOTAL PROTEIN 6.1 g/dL (6.4-8.2)
--- NOTE | 2020-04-15 08:56 | PN ---
DATE: LOCATION: Room 519 CHIEF COMPLAINT AND HISTORY OF PRESENT ILLNESS: This 54-year-old white female admitted with hypertensive urgency and pernicious vomiting. This morning she is afraid to eat anything, but is n.p.o. for a small bowel follow through in a while. She denies any vomiting now for well over 24 hours, but still was fearful that when she starts eating, she will begin vomiting again. She has had a workup to date including an ultrasound of the abdomen, which showed some mild fatty infiltration of the liver and laboratory have been mostly unremarkable other than a little bit of leukocytosis on the day prior to this as well as potassium of 3.3. GI as well as Cardiology are seeing her due to chest pain associated with this on admission, which Cardiology feels is atypical and likely GI related. She is at this point is scheduled for a small bowel follow through here this morning for GI and fasting cortisol levels have been ordered. PHYSICAL EXAMINATION: GENERAL: She is a well-developed, well-nourished white female, in no acute distress. VITAL SIGNS: Stable. She is afebrile. Blood pressures are excellent and certainly no hypertensive urgency is a problem any longer. CHEST: Clear. HEART: Regular rate and rhythm. ABDOMEN: Soft, benign without hepatosplenomegaly or mass. EXTREMITIES: Without cyanosis, clubbing, edema. NEUROLOGIC: She is intact. IMPRESSION: 1. Hypertensive urgency, controlled. 2. Atypical chest pain with outpatient ischemic workup planned. 3. Nausea and vomiting with epigastric abdominal pain still not fully elucidated. 4. COVID-19 ruled out. 5. Obstructive sleep apnea. 6. Chronic back pain. PLAN: Continue present care. Await cortisol levels as well as a small bowel follow through. GI help is appreciated and hopefully will be able to elucidate this and started back on a diet sooner as opposed to later. KEVIN ARMENDARIZ MD DR: DEWAYNE/jan JOB#: [id number] / [id number]
[2020-04-15] MEDS ORDERED: POLYETHYLENE GLYCOL 3350 17 GM PACKET. PO SCH (09:00)
[2020-04-15 09:06] LABS: CALCIUM 8.7 mg/dL (8.5-10.1)
[2020-04-15 09:07] LABS: POTASSIUM 4.5 mmol/L (3.5-5.1)
--- NOTE | 2020-04-15 11:19 | PDOC ---
Date of Service: DATE: 04/15/20 TIME: 11:15 Subjective: Subjective: No n/v or abd pain (except "hungry"). Has stooled. Wants chicken noodle soup. Wonders about discharge. Having problems w/ phone in room. Objective: Vital Signs: Vital Signs Date Time Temp Pulse Resp B/P (MAP) Pulse Ox O2 Delivery O2 Flow Rate FiO2 04/15/20 07:00 97.3 54 18 151/82 (105) 96 Room Air 97.3 04/14/20 15:00 2.0 Labs: Laboratory Tests Test 04/15/20 07:55 White Blood Count 8.7 x10^3/uL Red Blood Count 4.66 x10^6/uL Hemoglobin 12.7 g/dL Hematocrit 38.8 % Mean Corpuscular Volume 83 fL Mean Corpuscular Hemoglobin 27 pg Mean Corpuscular Hemoglobin Concent 33 g/dL Red Cell Distribution Width 14.2 % Platelet Count 248 x10^3/uL Neutrophils (%) (Auto) 66 % Lymphocytes (%) (Auto) 25 % Monocytes (%) (Auto) 7 % Eosinophils (%) (Auto) 1 % Basophils (%) (Auto) 1 % Neutrophils # (Auto) 5.7 x10^3/uL Lymphocytes # (Auto) 2.2 x10^3/uL Monocytes # (Auto) 0.6 x10^3/uL Eosinophils # (Auto) 0.1 x10^3/uL Basophils # (Auto) 0.1 x10^3/uL Sodium Level 140 mmol/L Potassium Level 4.5 mmol/L Chloride Level 107 mmol/L Carbon Dioxide Level 26 mmol/L Anion Gap 7 Blood Urea Nitrogen 18 mg/dL Creatinine 1.1 mg/dL Estimated GFR (Cockcroft-Gault) 52.2 BUN/Creatinine Ratio 16 Glucose Level 84 mg/dL Calcium Level 8.7 mg/dL Total Bilirubin 0.7 mg/dL Aspartate Amino Transf (AST/SGOT) 15 U/L Alanine Aminotransferase (ALT/SGPT) 24 U/L Alkaline Phosphatase 85 U/L Total Protein 6.1 g/dL Albumin 3.0 g/dL Albumin/Globulin Ratio 1.0 Cortisol AM Sample 18.4 ug/dL Imaging: UGI/SBFT 04/15 pending PE: GEN: NAD LUNGS: CTAB HEART: RRR ABD: NABS, S/ND/NT NEURO/PSYCH: A & O 3 A/P: ACP, HTN N/v, epigastric discomfort - better H/o GERD, s/p cholecystectomy Constipation - resolved COVID-19 negative 04/11 -- Imaging results pending, normal Cortisol. Okay for chicken noodle soup, ADAT. Justicifation of Admission Dx: Justifications for Admission: Justification of Admission Dx: Yes HENRIETTA ERNST Apr 15, 2020 11:19
[2020-04-15] MEDS ORDERED: POLYETHYLENE GLYCOL 3350 17 GM PACKET. PO PRN (11:45)
[2020-04-15] MEDS: LISINOPRIL 20 MG TABLET PO SCH (11:55)
[2020-04-15] MEDS: ASPIRIN ENTERIC COATED 81 MG TABLET.DR. PO SCH (11:56)
[2020-04-15] MEDS: amLODIPine BESYLATE 10 MG TABLET PO SCH (11:56)
--- NOTE | 2020-04-15 14:27 | NUR ---
SW following for discharge planning. Spoke with RN and reviewed chart. Pt to have a procedure today. GI following. Discharge plan remains home, self-care when stable. SW available as needed but there are no anticipated SW needs at discharge.
[2020-04-15 15:00] VITALS: BP 151/65
[2020-04-15] MEDS: PANTOPRAZOLE 40 MG TABLET.DR. PO SCH (16:30)
--- NOTE | 2020-04-15 16:42 | RAD ---
EXAM: SINGLE CONTRAST UPPER GI SERIES. HISTORY: Nausea and vomiting. Assess for volvulus. COMPARISON: None. FINDINGS: A double back operator radiograph was obtained. Barium contrast material was administered orally and followed in its course through the esophagus, gastroesophageal junction, stomach, pylorus and proximal small bowel with fluoroscopy. Fluoroscopy time 2.0 minutes. 11 images were obtained. The esophagus appears normal in morphology and mucosal pattern. Motility appeared normal. The gastroesophageal junction within its expected position. It opened promptly. No reflux was observed. Gastric morphology and mucosal pattern appears normal. The pylorus opened promptly. The duodenal bulb and proximal small bowel are unremarkable. IMPRESSION: 1. Unremarkable upper GI series. EXAM: SMALL BOWEL FOLLOW-THROUGH. HISTORY: Nausea and vomiting.. COMPARISON: None. FINDINGS: A double back operator image was obtained. Barium contrast material was administered orally and followed in its course through the stomach, small bowel and proximal colon with fluoroscopy and plain radiographs. 1 fluoroscopic image was obtained. Fluoroscopy time 10 seconds. The double back operator image demonstrates a nonobstructive bowel gas pattern. There are no distended small bowel loops. No strictures are seen. The small bowel fold pattern is unremarkable. Transit time was normal at 60 minutes (normal <2 hours.) IMPRESSION: 1. Unremarkable small bowel series. Electronically signed by: Rayne Daniels MD (04/15/2020 4:39 PM) [id number]
[2020-04-15 19:00] VITALS: BP 120/51
[2020-04-15] MEDS: SERTRALINE 50 MG TABLET. PO SCH (21:17)
[2020-04-15] MEDS: ALPRAZolam 0.5 MG TABLET PO PRN (21:17)
[2020-04-15] MEDS: ATORVASTATIN CALCIUM 20 MG TABLET PO SCH (21:17)
[2020-04-15 23:00] VITALS: BP 112/55
[2020-04-16] MEDS: IV NORMAL SALINE 1000ML BAG 1,000 ML IV SCH ×2 (02:39→08:00)
[2020-04-16 03:00] VITALS: BP 103/56
[2020-04-16 07:00] VITALS: BP 117/59
[2020-04-16] MEDS: PANTOPRAZOLE 40 MG TABLET.DR. PO SCH (09:51)
[2020-04-16] MEDS: amLODIPine BESYLATE 10 MG TABLET PO SCH (09:51)
[2020-04-16] MEDS: ASPIRIN ENTERIC COATED 81 MG TABLET.DR. PO SCH (09:51)
[2020-04-16] MEDS: LISINOPRIL 20 MG TABLET PO SCH (09:52)
[2020-04-16 11:00] VITALS: BP 117/49
--- NOTE | 2020-04-16 13:43 | DS ---
DATE OF DISCHARGE: 04/16/2020 PRIMARY DIAGNOSIS: Accelerated hypertension. ADDITIONAL DIAGNOSES: Pernicious vomiting, obstructive sleep apnea, anxiety, depression, gastroesophageal reflux disease. CHIEF COMPLAINT AND HISTORY OF PRESENT ILLNESS: This 54-year-old white female admitted through the Emergency Room with hypertensive urgency and pernicious vomiting. SUMMARY OF STAY: The patient was admitted. Cardiology and GI were consulted. She did have some chest pain associated with this and cardiac workup during the stay was essentially normal as they felt it was atypical and did have an echocardiogram that was normal and felt no further workup necessary. GI followed along for the ongoing vomiting, which eventually resolved during the stay. She did have an ultrasound of the abdomen done during the stay showing mild fatty infiltration of the liver with no other acute process. She had a small bowel series done in addition that was unremarkable. She had a cortisol testing done that was normal. CBCs that were essentially unremarkable. Lipase that was within normal limits. Lipid panel that showed elevated LDL of 154. She did have resolution of her vomiting for a couple of days prior to admission, was tolerating a diet and felt she could be dismissed with further outpatient followup and this was accomplished on the day of discharge. DISPOSITION: The patient is discharged to home. DIET: Regular diet. ACTIVITY: As tolerated. FOLLOWUP: Office of Dr. Mckeon/Dr. Espino in the next week or so. DISCHARGE MEDICATIONS: Listed on the med rec and have been addressed. KEVIN ARMENDARIZ MD DR: DEWAYNE/jan JOB#: [id number] / [id number] ALEAH Talbert MD, WHITNEY MD
--- NOTE | 2020-04-16 15:23 | NUR ---
Pt escorted out with family and Yovana SNOW to main entrance with belongings. IV and telemonitor discontinued.
== END 2020-04-16 15:22 | disposition home or self-care (01) | DRG 305 ==
LOC: ER 12:46 → ED HOLD 14:14 → 6 SOUTH 20:52 → OBSVTOIN 04-12 14:58 → 5 NORTH 04-15 00:21
PROVIDERS: ADMIT Family Medicine; ATTEND Family Medicine
DX: I16.0 Hypertensive urgency (principal); I24.8 Other forms of acute ischemic heart disease; F41.9 Anxiety disorder, unspecified; J44.9 Chronic obstructive pulmonary disease, unspecified; I10 Essential (primary) hypertension; K21.9 Gastro-esophageal reflux disease without esophagitis; G47.33 Obstructive sleep apnea (adult) (pediatric); Z20.828 Contact with and (suspected) exposure to other viral communicable diseases; G89.29 Other chronic pain; F31.9 Bipolar disorder, unspecified; M19.90 Unspecified osteoarthritis, unspecified site; E87.6 Hypokalemia; K59.00 Constipation, unspecified; K76.0 Fatty (change of) liver, not elsewhere classified; E78.5 Hyperlipidemia, unspecified; Z87.11 Personal history of peptic ulcer disease; Z85.43 Personal history of malignant neoplasm of ovary; Z87.891 Personal history of nicotine dependence; Z90.49 Acquired absence of other specified parts of digestive tract; Z90.710 Acquired absence of both cervix and uterus; Z82.5 Family history of asthma and other chronic lower respiratory diseases; Z82.49 Family history of ischemic heart disease and other diseases of the circulatory system
CPT/HCPCS: 36415; 71045; 74248; 76700; 80048; 80053; 80061; 81001; 82533; 82553; 83036; 83690; 83735; 84484; 85025; 85379; 87086; 93005; 93306; 96361; 96374; 96375; C9113; G0378; G0379; J0360; J0780; J1100; J1200; J1885; J2060; J2405; J2765; J3010; J3480; J3490; J7030; U0003; 99291-25; Q0169

== ENCOUNTER → 2020-05-06 | Outpatient (CLI) | payer OTHER ==
[2020-04-16 11:00] VITALS: BP 117/49
[~2020-05-06] MED LIST: ALPR0.5T6 PO; AMLO-187 PO; GADOTERATE 7.5 MMOL/15ML VIAL. IVP ONE; NAPR-514 PO; NAPR1TAB25 PO; OMEP40CA45 PO; SERT50TA PO
--- NOTE | 2020-05-06 13:34 | RAD ---
EXAMINATION: Magnetic resonance imaging (MRI) of the brain and brainstem without and with contrast 11:07 AM HISTORY: Acute intractable headache. Right hand weakness. TECHNIQUE: Multiplanar multi-weighted MRI of the brain and brainstem was performed without and with i ntravenous contrast using the general brain protocol. Contrast information: 15 mL Gadolinium based contrast COMPARISON: None available. FINDINGS: The scalp and calvarium are normal. The superior sagittal sinus demonstrates normal venous flow. The corpus callosum is normal in shape and signal intensity. The posterior fossa is unremarkable. The p ituitary and sella are normal. The brainstem and craniocervical junction are unremarkable. There are T2/FLAIR signal hyperintense foci in the periventricular and subcortical white matter most suggestiv e of mild chronic small vessel ischemic changes. Diffusion weighted images reveal no hyperintensities to suggest acute cerebral infarction. The suscep tibility weighted sequences reveal no evidence of acute or chronic hemorrhage. The ventricles are nor mal in size and position without evidence of hydrocephalus. There are no areas of abnormal contrast enhancement. Small subgaleal lipoma identified at the vertex measuring 6 mm in thickness spanning 2.2 cm. The paranasal sinuses are normal. The visualized portions of the mastoids are unremarkable. The orbi ts appear normal. Normal flow voids are demonstrated in the carotid arteries and basilar artery. IMPRESSION: 1. No evidence for acute or subacute ischemia. 2. There are T2/FLAIR signal hyperintense foci in the periventricular and subcortical white matter mo st suggestive of mild chronic small vessel ischemic changes. Electronically signed by: Miriam Valerio MD (05/06/2020 12:59 PM) [facility]MARYAM
== END ==
LOC: MRI 11:23
PROVIDERS: ATTEND Family Medicine
DX: R51.9 Headache, unspecified (principal); R29.898 Other symptoms and signs involving the musculoskeletal system; D17.79 Benign lipomatous neoplasm of other sites
CPT/HCPCS: 70553; A9575

== ENCOUNTER 2020-10-12 23:14 | Observation (INO) | payer OTHER ==
[~2020-10-12] VITALS: Ht 162.6 cm; Wt 103.3 kg
[~2020-10-12 23:14] MED LIST changes: -GADOTERATE 7.5 MMOL/15ML VIAL. IVP ONE; -OMEP40CA45 PO; +OMEP40CA7 PO
[2020-10-13 00:07] LABS: BASO % 0 % (0-3); EOS % 0 % (0-3); HEMATOCRIT 44.3 % (36.0-47.0); HEMOGLOBIN 14.9 g/dL (12.0-15.5); LYMPH # 1.2 x10^3/uL (1.0-4.8); LYMPH % 8 % (24-48); MEAN CORPUSCULAR HEMOGLOBIN 28 pg (25-35); MEAN CORPUSCULAR HGB CONC 34 g/dL (31-37); MEAN CORPUSCULAR VOLUME 82 fL (79-100); MONO # 0.4 x10^3/uL (0.0-1.1); MONO % 3 % (0-9); NEUT # 12.6 x10^3/uL (1.8-7.7); NEUT % 89 % (31-73); PLATELET COUNT 367 x10^3/uL (140-400); RED BLOOD COUNT 5.42 x10^6/uL (3.50-5.40); RED CELL DISTRIBUTION WIDTH 14.9 % (11.5-14.5); WHITE BLOOD COUNT 14.1 x10^3/uL (4.0-11.0)
[2020-10-13 00:14] LABS: AMPHETAMINE/METHAMPHETAMINE NEG (NEG); BARBITURATES NEG (NEG); BENZODIAZEPINES POS (NEG); CANNABINOIDS POS (NEG); COCAINE NEG (NEG); METHADONE NEG (NEG); OPIATES NEG (NEG); PHENCYCLIDINE NEG (NEG)
[2020-10-13 00:18] LABS: CREATININE 1.4 mg/dL (0.6-1.0); GFR 39.3; POTASSIUM 3.5 mmol/L (3.5-5.1)
[2020-10-13 00:22] LABS: ALBUMIN 4.5 g/dL (3.4-5.0); ALBUMIN/GLOBULIN RATIO 1.1 (1.0-1.7); TOTAL BILIRUBIN 0.5 mg/dL (0.2-1.0); TOTAL PROTEIN 8.6 g/dL (6.4-8.2)
--- NOTE | 2020-10-13 00:38 | RAD ---
INDICATION: Reason: syncope / Spl. Instructions: / History: COMPARISON: None. TECHNIQUE: Axial CT images obtained through the head without intravenous contrast. One or more of the following individualized dose reduction techniques were utilized for this examinat ion: 1. Automated exposure control; 2. Adjustment of the mA and/or kV according to patient size; 3 . Use of iterative reconstruction technique. FINDINGS: No intracranial hemorrhage. No midline shift. Basal cisterns patent. Ventricles and sulci are unremarkable. No acute osseous abnormality. Orbits and paranasal sinuses unremarkable. IMPRESSION: * No acute intracranial hemorrhage. Electronically signed by: Patrick Mckeon MD (10/13/2020 12:35 AM) [id number]
[2020-10-13] MEDS ORDERED: ASPIRIN CHEWABLE 81 MG TABLET. PO ONE (01:30)
[2020-10-13] MEDS ORDERED: IV NORMAL SALINE 1000ML BAG 1,000 ML IV ONE (01:30)
--- NOTE | 2020-10-13 01:33 | PHYS DOC ---
Past Medical History Past Medical History: Anxiety, Cancer, COPD, Depression, Hypertension, Other Additional Past Medical Histor: endometriosis; Ovarian CA;former substance abuser, clean for 14 years. Past Surgical History: Cholecystectomy, , Hysterectomy Smoking Status: Former Smoker Alcohol Use: Sober General Adult EDM: Chief Complaint: ALTERED MENTAL STATUS HPI: HPI: Patient is a 55 year [id number] female past medical history hypertension COPD anxiety presents for evaluation of altered mental status. On arrival patient is alert and oriented to name and birthday only. She is unsure of events that took place prior to arrival. Patient tells me that she has had nausea, vomiting, and diarrhea all day. She denies any associated abdominal pain. states he heard patient gasping for air from another room. He found patient faced down in the bed with decreased LOC and confused. states patients eyes where rolled back in her head and patient was drooling. states patient did not know his or her name. No seizure like activity was witness. On arrival patient a/ox2. Patient without focal weakness. Patient heart rate in the 130bmp. Patient was incontinent of urine. She complaints of bilateral arm and leg pain-- described as "jt horse". Review of Systems: Review of Systems: Limited due to altered mental status Heart Score: C/O Chest Pain: N/A Risk Factors: Risk Factors: DM, Current or recent (<one month) smoker, HTN, HLP, family history of CAD, obesity. Risk Scores: Score 0 - 3: 2.5% MACE over next 6 weeks - Discharge Home Score 4 - 6: 20.3% MACE over next 6 weeks - Admit for Clinical Observation Score 7 - 10: 72.7% MACE over next 6 weeks - Early Invasive Strategies Current Medications: Current Medications Medications (Trade) Dose Ordered Sig/[facility] Start Time Stop Time Status Last Admin Dose Admin Aspirin (Aspirin Chewable) 324 mg 1X ONCE 10/13/20 01:30 10/13/20 01:31 10/13/20 01:03 324 MG Sodium Chloride 1,000 ml @ 1,000 mls/hr 1X ONCE 10/13/20 01:30 10/13/20 02:29 10/13/20 01:02 1,000 MLS/HR Allergies: Allergies: Allergies Coded Allergies Type Severity Reaction Last Updated Verified acetaminophen Allergy Severe SWELLING 04/11/20 Yes codeine Allergy Severe SWELLING 04/11/20 Yes oxycodone Allergy Severe SWELLING 04/11/20 Yes Penicillins Allergy Intermediate 04/11/20 Yes hydrocodone Allergy Intermediate ALL OPIATES 04/11/20 Yes Physical Exam: PE: General: alert, no acute distress. Skin: warm, dry and intact. Head:: Normocephalic, atraumatic. Neck: Trachea midline. Eyes: EOMI, Normal conjunctiva, No drainage CARDIOVASCULAR: Tachycardic RESPIRATORY: No respiratory distress Back: Full range of motion. MUSCULOSKELETAL: Full range of motion of bilateral upper and lower extremities. GASTROINTESTINAL: Abdomen soft without rebound or guarding. NEUROLOGICAL: Alert but confused. No neurological deficits observed Psychiatric: Cooperative. Current Patient Data: Labs: Laboratory Tests Test 10/12/20 23:20 10/12/20 23:26 Urine Opiates Screen Neg (NEG) Urine Methadone Screen Neg (NEG) Urine Barbiturates Neg (NEG) Urine Phencyclidine Screen Neg (NEG) Urine Amphetamine/Methamphetamine Neg (NEG) Urine Benzodiazepines Screen Pos (NEG) Urine Cocaine Screen Neg (NEG) Urine Cannabinoids Screen Pos (NEG) Urine Ethyl Alcohol Neg (NEG) White Blood Count 14.1 x10^3/uL (4.0-11.0) H Red Blood Count 5.42 x10^6/uL (3.50-5.40) H Hemoglobin 14.9 g/dL (12.0-15.5) Hematocrit 44.3 % (36.0-47.0) Mean Corpuscular Volume 82 fL (79-100) Mean Corpuscular Hemoglobin 28 pg (25-35) Mean Corpuscular Hemoglobin Concent 34 g/dL (31-37) Red Cell Distribution Width 14.9 % (11.5-14.5) H Platelet Count 367 x10^3/uL (140-400) Neutrophils (%) (Auto) 89 % (31-73) H Lymphocytes (%) (Auto) 8 % (24-48) L Monocytes (%) (Auto) 3 % (0-9) Eosinophils (%) (Auto) 0 % (0-3) Basophils (%) (Auto) 0 % (0-3) Neutrophils # (Auto) 12.6 x10^3/uL (1.8-7.7) H Lymphocytes # (Auto) 1.2 x10^3/uL (1.0-4.8) Monocytes # (Auto) 0.4 x10^3/uL (0.0-1.1) Eosinophils # (Auto) 0.0 x10^3/uL (0.0-0.7) Basophils # (Auto) 0.0 x10^3/uL (0.0-0.2) Platelet Estimate Pending Sodium Level 137 mmol/L (136-145) Potassium Level 3.5 mmol/L (3.5-5.1) Chloride Level 97 mmol/L (98-107) L Carbon Dioxide Level 17 mmol/L (21-32) L Anion Gap 23 (6-14) H Blood Urea Nitrogen 14 mg/dL (7-20) Creatinine 1.4 mg/dL (0.6-1.0) H Estimated GFR (Cockcroft-Gault) 39.3 BUN/Creatinine Ratio 10 (6-20) Glucose Level 172 mg/dL (70-99) H Calcium Level 9.0 mg/dL (8.5-10.1) Total Bilirubin 0.5 mg/dL (0.2-1.0) Aspartate Amino Transferase (AST) 23 U/L (15-37) Alanine Aminotransferase (ALT) 29 U/L (14-59) Alkaline Phosphatase 121 U/L (46-116) H Troponin I Quantitative 0.077 ng/mL (0.000-0.055) Total Protein 8.6 g/dL (6.4-8.2) H Albumin 4.5 g/dL (3.4-5.0) Albumin/Globulin Ratio 1.1 (1.0-1.7) Ethyl Alcohol Level < 10 mg/dL (0-10) Laboratory Tests 10/12/20 23:26 Laboratory Tests 10/12/20 23:26 EKG: EKG: [] EKG #1 performed at 2318 heart rate [address] elevation no ST depression no acute HI EKG #2 performed at 0103 hrs. heart rate [address] elevation no ST depression no acute HI. Radiology/Procedures: Radiology/Procedures: [] Impression: CT head no acute abnormality. Course & Med Decision Making: Course & Med Decision Making Pertinent Labs and Imaging studies reviewed. (See chart for details) [] Patient was evaluated for chief complaint. Work-up consisted of laboratory analysis radiologic imaging and EKG. Results reviewed and discussed with patient and . CT head no acute abnormalities. Patient noted to have elevated troponin of 0.077. Review of previous cardiac enzymes in March 2020 shows elevation of 0.08 and 0.09. EKG without acute ischemic changes. Treatment included aspirin.. I anticoagulated the patient with Lovenox 1 mg/kg sq. Patient was admitted to primary care physician with cardiology (elevated troponin) and neurology (possible seizure) consult. . Dragon Disclaimer: Dragon Disclaimer: This electronic medical record was generated, in whole or in part, using a voice recognition dictation system. Departure Departure Impression: Primary Impression: Altered mental status Additional Impressions: Elevated troponin Gastroenteritis Disposition: ADMITTED INPATIENT Admitting Physician: Anderson Dang Condition: STABLE Referrals: ANDERSON DANG MD (PCP) CHAPIN HILL DO October 13, 2020 01:33
[2020-10-13] MEDS ORDERED: ONDANSETRON PF 4 MG/2 ML VIAL. IV PRN (02:00)
[2020-10-13 02:20] VITALS: BP 154/78
[2020-10-13] MEDS ORDERED: mobic (03:19)
[2020-10-13] MEDS ORDERED: ALPR0.5T PO (03:19)
--- NOTE | 2020-10-13 03:21 | NUR ---
The patient, TE MCCRAY, 55 y/o, F admitted by ANDERSON DANG MD, was given written information regarding hospital policies, unit procedures and contact persons. Valuables were checked and left at pt bedside. Pt call light placed in reach pt reminded to call for assistance prior to getting oob, vss will resume care and continue to monitor pt.
[2020-10-13 05:05] LABS: % BANDS 2 % (0-9); % LYMPHS 8 % (24-48); % METAS 1 % (0-0); % MONOS 2 % (0-10); % SEGS 87 % (35-66); PLT ESTIMATE ADEQUATE (ADEQUATE)
[2020-10-13 07:00] VITALS: BP 118/70
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
[2020-10-13] MEDS ORDERED: ONDANSETRON ODT 4 MG TAB.RAPDIS. PO PRN (09:15)
[2020-10-13] MEDS ORDERED: ALPRAZolam 0.5 MG TABLET PO PRN (09:30)
[2020-10-13] MEDS ORDERED: IBUPROFEN 200 MG TABLET. PO ONE (09:30)
--- NOTE | 2020-10-13 10:40 | RAD ---
EXAM: Left lower extremity venous Doppler sonogram. HISTORY: Pain and swelling. TECHNIQUE: Chambers scale and color Doppler sonographic evaluation of the left lower extremity veins with spectral waveform analysis was performed. FINDINGS: There is normal color flow, normal compressibility and there are normal spectral waveforms in the common femoral, superficial femoral, popliteal, posterior tibial and greater saphenous veins. IMPRESSION: No Doppler evidence of lower extremity deep venous thrombosis. Electronically signed by: Claudette Franco MD (10/13/2020 10:38 AM) [id number]
[2020-10-13 11:00] VITALS: BP 99/54
--- NOTE | 2020-10-13 11:49 | PDOC2 ---
AMANDEEP ZEPEDA DBAS 10/13/20 1148: CARDIAC CONSULT DATE OF CONSULT Date of Consult DATE: 10/13/20 TIME: 11:32 REASON FOR CONSULT Reason for Consult: Elevated troponin REFERRING PHYSICIAN Referring Physician: Dr. Pavon SOURCE Source: Chart review, Patient HISTORY OF PRESENT ILLNESS HISTORY OF PRESENT ILLNESS This is a 55 yo female who presented secondary to altered mental status. Per report, heard gasping from their bedroom. Found patient face down in the bed with decreased level of consciousness. Patient's eyes were rolled back and she was drooling. No witness seizure activity. EMS was called. Troponin noted to be elevated upon arrival, which prompted this consult. Patient does reports having diarrhea and nausea/vomiting since yesterday morning. Is now alert and oriented. Cannot recall events of yesterday prior to arrival. She denies any chest pain, palpitations, dizziness, diaphoresis, or SOA. PAST MEDICAL HISTORY Past Medical History Cardiovascular: HTN Pulmonary: COPD, Other (WELLINGTON- untreated. ) GI: GERD, Peptic Ulcer disease Heme/Onc: Cancer (ovarian ) Psych: Anxiety, Bipolar, Depression Musculoskeletal: Osteoarthritis PAST SURGICAL HISTORY Past Surgical History Cholecystectomy, Hernia Repair, Hysterectomy, Other (back surgery ) FAMILY HISTORY Family History: Heart Disease, Hypertension SOCIAL HISTORY Social History Smoke: Quit ALCOHOL: none Drugs: Marijuana use (H/o meth use. Clean since 2005) Lives: with Family CURRENT MEDICATIONS CURRENT MEDICATIONS Current Medications Medications (Trade) Dose Ordered Sig/Alberto Route PRN Reason Start Time Stop Time Status Last Admin Dose Admin Aspirin (Aspirin Chewable) 324 mg 1X ONCE PO 10/13/20 01:30 10/13/20 01:31 DC 10/13/20 01:03 Sodium Chloride 1,000 ml @ 1,000 mls/hr 1X ONCE IV 10/13/20 01:30 10/13/20 02:29 DC 10/13/20 01:02 Enoxaparin Sodium (Lovenox 100mg Syringe) 100 mg Q12HR SQ 10/13/20 02:00 10/13/20 10:58 Ibuprofen (Motrin) 200 mg 1X ONCE PO 10/13/20 09:30 10/13/20 09:31 DC 10/13/20 10:58 ALLERGIES ALLERGIES: Coded Allergies: codeine (Verified Allergy, Severe, SWELLING, 04/11/20) oxycodone (Verified Allergy, Severe, SWELLING, 04/11/20) Penicillins (Verified Allergy, Intermediate, 04/11/20) hydrocodone (Verified Allergy, Intermediate, ALL OPIATES, 04/11/20) Swelling ROS Review of System 14 point ROS conducted with pertinent positives noted above in HPI PHYSICAL EXAM PHYSICAL EXAM General: Alert, Oriented X3, Cooperative, No acute distress HEENT: Atraumatic, Mucous membr. moist/pink Lungs: Clear to auscultation Heart: Regular rate, Normal S1, Normal S2 Abdomen: Normal bowel sounds, Soft, No tenderness Extremities: No edema, Normal pulses Skin: No significant lesion Neuro: Normal speech Psych/Mental Status: Mental status NL, Mood NL MUSCULOSKELETAL: Osteoarthritic changes both hands VITALS/I&O VITALS/I&O: Vital Signs Date Time Temp Pulse Resp B/P (MAP) Pulse Ox O2 Delivery O2 Flow Rate FiO2 10/13/20 11:00 98.5 91 16 99/54 (69) 97 Nasal Cannula 98.5 I & O 10/12/20 10/12/20 10/13/20 15:00 23:00 07:00 Intake Total 0 ml Balance 0 ml LABS Lab: Laboratory Tests Test 10/12/20 23:20 10/12/20 23:26 10/13/20 01:44 10/13/20 05:35 Urine Opiates Screen Neg (NEG) Urine Methadone Screen Neg (NEG) Urine Barbiturates Neg (NEG) Urine Phencyclidine Screen Neg (NEG) Urine Amphetamine/Methamphetamine Neg (NEG) Urine Benzodiazepines Screen Pos (NEG) Urine Cocaine Screen Neg (NEG) Urine Cannabinoids Screen Pos (NEG) Urine Ethyl Alcohol Neg (NEG) White Blood Count 14.1 x10^3/uL (4.0-11.0) H Red Blood Count 5.42 x10^6/uL (3.50-5.40) H Hemoglobin 14.9 g/dL (12.0-15.5) Hematocrit 44.3 % (36.0-47.0) Mean Corpuscular Volume 82 fL (79-100) Mean Corpuscular Hemoglobin 28 pg (25-35) Mean Corpuscular Hemoglobin Concent 34 g/dL (31-37) Red Cell Distribution Width 14.9 % (11.5-14.5) H Platelet Count 367 x10^3/uL (140-400) Neutrophils (%) (Auto) 89 % (31-73) H Lymphocytes (%) (Auto) 8 % (24-48) L Monocytes (%) (Auto) 3 % (0-9) Eosinophils (%) (Auto) 0 % (0-3) Basophils (%) (Auto) 0 % (0-3) Neutrophils # (Auto) 12.6 x10^3/uL (1.8-7.7) H Lymphocytes # (Auto) 1.2 x10^3/uL (1.0-4.8) Monocytes # (Auto) 0.4 x10^3/uL (0.0-1.1) Eosinophils # (Auto) 0.0 x10^3/uL (0.0-0.7) Basophils # (Auto) 0.0 x10^3/uL (0.0-0.2) Segmented Neutrophils % 87 % (35-66) H Band Neutrophils % 2 % (0-9) Lymphocytes % 8 % (24-48) L Monocytes % 2 % (0-10) Metamyelocytes % 1 % (0-0) H Platelet Estimate Adequate (ADEQUATE) Sodium Level 137 mmol/L (136-145) Potassium Level 3.5 mmol/L (3.5-5.1) Chloride Level 97 mmol/L (98-107) L Carbon Dioxide Level 17 mmol/L (21-32) L Anion Gap 23 (6-14) H Blood Urea Nitrogen 14 mg/dL (7-20) Creatinine 1.4 mg/dL (0.6-1.0) H Estimated GFR (Cockcroft-Gault) 39.3 BUN/Creatinine Ratio 10 (6-20) Glucose Level 172 mg/dL (70-99) H Calcium Level 9.0 mg/dL (8.5-10.1) Total Bilirubin 0.5 mg/dL (0.2-1.0) Aspartate Amino Transferase (AST) 23 U/L (15-37) Alanine Aminotransferase (ALT) 29 U/L (14-59) Alkaline Phosphatase 121 U/L (46-116) H Troponin I Quantitative 0.077 ng/mL (0.000-0.055) 0.296 ng/mL (0.000-0.055) Total Protein 8.6 g/dL (6.4-8.2) H Albumin 4.5 g/dL (3.4-5.0) Albumin/Globulin Ratio 1.1 (1.0-1.7) Ethyl Alcohol Level < 10 mg/dL (0-10) D-Dimer (Suzan) 0.45 ug/mlFEU (0.00-0.50) Test 10/13/20 08:00 Troponin I Quantitative 0.260 ng/mL (0.000-0.055) Laboratory Tests 10/12/20 23:26 Laboratory Tests 10/12/20 23:26 ECHOCARDIOGRAM ECHOCARDIOGRAM <Conclusion> Left ventricle systolic function is normal. The Ejection Fraction is 60-65%. There is normal LV segmental wall motion. Transmitral Doppler flow pattern is Grade II-pseudonormal filling dynamics. Doppler and Color-flow revealed trace mitral regurgitation. There is no evidence of significant pericardial effusion. DATE: 04/13/20 1221 STRESS TEST STRESS TEST Conclusion 1. No EKG evidence of stress-induced ischemia. 2. Nuclear imaging shows no reversible ischemia. 3. Nuclear imaging shows a small fixed defect in the apical septal wall. 4. Left ventricular systolic function is normal with an ejection fraction of greater than 70% and no regional wall motion abnormalities. 5. Moderately low risk Lexiscan nuclear stress test with no evidence of reversible ischemia and good LV function. There is a small fixed defect in the apical septal wall most consistent with a technical artifact. DATE: 05/10/20 [id number] ASSESSMENT/PLAN ASSESSMENT/PLAN 1. Metabolic encephalopathy; CT head without acute findings. Resolved. 2. Nausea/vomiting, diarrhea 3. Mild troponin elevation; peak 0.29. Most probably type II, demand ischemia. EKG shows ST. CP free. Echo 04/15 with preserved LV systolic function. MPI 05/15 with small apical fixed defect most probably consistent with a technical artifact. No reversible ischemia noted. No acute events on tele 4. Leukocytosis 5. MASOUD 6. Hypertension; controlled overall. 7. WELL[place]. untreated 8. GERD, PUD, H. pylori; PPI 9. PUI; negative Recommendations Recent cardiac workup as noted above Statin therapy No further inpatient workup at this time Supportive care HANG RODRIGUEZ MD 10/14/20 1650: CARDIAC CONSULT ASSESSMENT/PLAN ASSESSMENT/PLAN Late entry for 10/13/20 The patient was seen and interviewed as well as examined at the bedside. The chart was reviewed. The case was discussed. Agree with the plan of care. AMADNEEP ZEPEDA APRN October 13, 2020 11:48 HANG RODRIGUEZ MD October 14, 2020 16:50
--- NOTE | 2020-10-13 12:13 | PDOC2 ---
GI CONSULT Date of Service: DATE: 10/13/20 TIME: 12:11 Reason For Consult: n/v, diarrhea, abd pain HPI: HPI: 55 y/o female who we have seen in the past for n/v. Had EGD w/ Dr. Arboleda last summer @ [facility] - unable to review this procedure report. H/o GERD controlled w/ omeprazole QD. ?h/o PUD/H. pylori in the past. Previously reported normal colonoscopy in 2016 in [facility] - today she can't recall when colonoscopy was performed. S/p cholecystectomy. Hepatic steatosis on past imaging. UGI/SBFT and Cortisol normal in 03/2020. Stress test negative last year. This time, reports onset of n/v, diarrhea, and some upper abdominal discomfort at 10:00 a.m. yesterday morning. This time also associated w/ altered mental status ("unresponsiveness") - family called 911. Denies precipitating events. Nothing made her feel better yesterday. Since we have seen, has had occasional nausea but otherwise has felt okay GI- kaur. Mild nausea this morning after took ibuprofen but no recurrent vomiting, diarrhea, or abd pain. No hematemesis, hematochezia, melena, or weight loss. PMH: PMH: HTN, WELL[place], GERD, anxiety/depression cholecystectomy, hysterectomy/BSO, ventral hernia repair, inguinal hernia repair, plate in neck FH: Family History: Hypertension, Other ([place], COPD, alcoholism) Social History: Smoke: Quit ALCOHOL: none Drugs: Marijuana (daughter lives in [place] and "has a card so I smoke with her when I visit"), Other (h/o meth use - none since 2005) ROS: GEN: Denies fevers, chills, sweats HEENT: Denies blurred vision, sore throat CV: Denies chest pain RESP: Denies shortness of air, cough GI: Per HPI : Denies hematuria, dysuria ENDO: Denies weight changes NEURO: Denies confusion, dizziness MSK: Denies weakness, joint pain/swelling SKIN: Denies jaundice, pruritus Vitals: Vitals: Vital Signs Date Time Temp Pulse Resp B/P (MAP) Pulse Ox O2 Delivery O2 Flow Rate FiO2 10/13/20 11:00 98.5 91 16 99/54 (69) 97 Nasal Cannula 98.5 Labs: Labs: Laboratory Tests Test 10/12/20 23:20 10/12/20 23:26 10/13/20 01:44 10/13/20 05:35 Urine Opiates Screen Neg (NEG) Urine Methadone Screen Neg (NEG) Urine Barbiturates Neg (NEG) Urine Phencyclidine Screen Neg (NEG) Urine Amphetamine/Methamphetamine Neg (NEG) Urine Benzodiazepines Screen Pos (NEG) Urine Cocaine Screen Neg (NEG) Urine Cannabinoids Screen Pos (NEG) Urine Ethyl Alcohol Neg (NEG) White Blood Count 14.1 x10^3/uL (4.0-11.0) Red Blood Count 5.42 x10^6/uL (3.50-5.40) Hemoglobin 14.9 g/dL (12.0-15.5) Hematocrit 44.3 % (36.0-47.0) Mean Corpuscular Volume 82 fL (79-100) Mean Corpuscular Hemoglobin 28 pg (25-35) Mean Corpuscular Hemoglobin Concent 34 g/dL (31-37) Red Cell Distribution Width 14.9 % (11.5-14.5) Platelet Count 367 x10^3/uL (140-400) Neutrophils (%) (Auto) 89 % (31-73) Lymphocytes (%) (Auto) 8 % (24-48) Monocytes (%) (Auto) 3 % (0-9) Eosinophils (%) (Auto) 0 % (0-3) Basophils (%) (Auto) 0 % (0-3) Neutrophils # (Auto) 12.6 x10^3/uL (1.8-7.7) Lymphocytes # (Auto) 1.2 x10^3/uL (1.0-4.8) Monocytes # (Auto) 0.4 x10^3/uL (0.0-1.1) Eosinophils # (Auto) 0.0 x10^3/uL (0.0-0.7) Basophils # (Auto) 0.0 x10^3/uL (0.0-0.2) Segmented Neutrophils % 87 % (35-66) Band Neutrophils % 2 % (0-9) Lymphocytes % 8 % (24-48) Monocytes % 2 % (0-10) Metamyelocytes % 1 % (0-0) Platelet Estimate Adequate (ADEQUATE) Sodium Level 137 mmol/L (136-145) Potassium Level 3.5 mmol/L (3.5-5.1) Chloride Level 97 mmol/L (98-107) Carbon Dioxide Level 17 mmol/L (21-32) Anion Gap 23 (6-14) Blood Urea Nitrogen 14 mg/dL (7-20) Creatinine 1.4 mg/dL (0.6-1.0) Estimated GFR (Cockcroft-Gault) 39.3 BUN/Creatinine Ratio 10 (6-20) Glucose Level 172 mg/dL (70-99) Calcium Level 9.0 mg/dL (8.5-10.1) Total Bilirubin 0.5 mg/dL (0.2-1.0) Aspartate Amino Transf (AST/SGOT) 23 U/L (15-37) Alanine Aminotransferase (ALT/SGPT) 29 U/L (14-59) Alkaline Phosphatase 121 U/L (46-116) Troponin I Quantitative 0.077 ng/mL (0.000-0.055) 0.296 ng/mL (0.000-0.055) Total Protein 8.6 g/dL (6.4-8.2) Albumin 4.5 g/dL (3.4-5.0) Albumin/Globulin Ratio 1.1 (1.0-1.7) Ethyl Alcohol Level < 10 mg/dL (0-10) D-Dimer (Suzan) 0.45 ug/mlFEU (0.00-0.50) Test 10/13/20 08:00 10/13/20 10:30 Troponin I Quantitative 0.260 ng/mL (0.000-0.055) SARS-CoV-2 Antigen (Rapid) Negative (NEGATIVE) Allergies: Coded Allergies: acetaminophen (Verified Allergy, Severe, SWELLING, 04/11/20) codeine (Verified Allergy, Severe, SWELLING, 04/11/20) oxycodone (Verified Allergy, Severe, SWELLING, 04/11/20) Penicillins (Verified Allergy, Intermediate, 04/11/20) hydrocodone (Verified Allergy, Intermediate, ALL OPIATES, 04/11/20) Swelling Medications: Current Medications Medications (Trade) Dose Ordered Sig/Alberto Route PRN Reason Start Time Stop Time Status Last Admin Dose Admin Aspirin (Aspirin Chewable) 324 mg 1X ONCE PO 10/13/20 01:30 10/13/20 01:31 DC 5/20/21 01:03 Sodium Chloride 1,000 ml @ 1,000 mls/hr 1X ONCE IV 10/13/20 01:30 10/13/20 02:29 DC 10/13/20 01:02 Enoxaparin Sodium (Lovenox 100mg Syringe) 100 mg Q12HR SQ 10/13/20 02:00 10/13/20 10:58 Ibuprofen (Motrin) 200 mg 1X ONCE PO 10/13/20 09:30 10/13/20 09:31 DC 10/13/20 10:58 Imaging: Imaging: Head CT IMPRESSION: * No acute intracranial hemorrhage. LE US IMPRESSION: No Doppler evidence of lower extremity deep venous thrombosis. PE: GEN: NAD - was asleep HEENT: Atraumatic, PERRL LUNGS: CTAB HEART: RRR ABD: NABS, S/ND/NT EXTREMITY: No edema SKIN: No rashes, no jaundice NEURO/PSYCH: A & O 3 - forgetful A/P: A/P: N/v, upper abd pain, diarrhea, AMS Leukocytosis, MASOUD, elevated troponin GERD CRC screen - UTD S/p cholecystectomy Hepatic steatosis +marijuana COVID negative -- Extensive GI workup as above. Okay to try clears, ADAT per GI if okay w/ cardiology and neuro - d/w nurse. Continue PPI - change to PO as able. If diarrhea recurs, could check stool studies. Will review any additional GI recs w/ Dr. Arboleda. HENRIETTA ERNST October 13, 2020 12:13
--- NOTE | 2020-10-13 12:52 | NUR ---
SS following for discharge planning. SS reviewed pt chart and discussed with pt RN. Pt is from home with spouse and is currently on room air. Cardiology and GI consulted. COVID19 test pending. Discharge plan is currently to home when medically ready. SS will continue to follow for discharge planning.
--- NOTE | 2020-10-13 14:08 | PDOC2 ---
NEUROLOGY CONSULT Date of Service DOS: DATE: 10/13/20 TIME: 14:05 Reason for Consult Reason for Consult: Possible seizure Referring Physician Referring Physician: Dr. Espino Source Source: Chart review, Patient History of Present Illness History of Present Illness The patient is a 55-year-old right-handed female who had nausea, vomiting, and diarrhea all day yesterday morning. Yesterday evening her found her gasping for air, facedown in the bed, her eyes rolled back in her head, she did not recognize her , but had no convulsive activity, tongue biting, or incontinence. Patient was still a little disoriented in the emergency department. She had tachycardia. She has been found to have elevated troponin, white blood count, creatinine, and hyperglycemia. Urine drug screen is positive for cannabinoids and benzodiazepines. Patient also has a history of methamphetamine abuse. She has had anxiety and depression. She feels fine now. She denies any headache, diplopia, dysphagia, dysarthria, numbness, weakness, or cognitive change. She was here in March with chest pain and nausea, work- up apparently negative. Past Medical History Cardiovascular: AFIB, CAD, HTN, [place] Pulmonary: Bronchitis, COPD, Other (Sleep apnea) GI: Peptic Ulcer disease Psych: Anxiety, Bipolar, Depression, Panic Musculoskeletal: low back pain, Osteoarthritis Renal/: UTI, Other (Ovarian cancer, endometriosis) Past Surgical History Past Surgical History: Hernia Repair (Inguinal and femoral), Hysterectomy, Other (Plate at C3-4) Family History Family History: Cancer Social History Social History Former smoker for 36 pack years, quit January 2017. History of methamphetamine use, sober for many years. No significant alcohol use. Works from home. Current Medications Current Medications Current Medications Aspirin (Aspirin Chewable) 324 mg 1X ONCE PO Last administered on 10/13/20at 01:03; Start 10/13/20 at 01:30; Stop 10/13/20 at 01:31; Status DC Sodium Chloride 1,000 ml @ 1,000 mls/hr 1X ONCE IV Last administered on 10/13/20at 01:02; Start 10/13/20 at 01:30; Stop 10/13/20 at 02:29; Status DC Enoxaparin Sodium (Lovenox 100mg Syringe) 100 mg Q12HR SQ Last administered on 10/13/20at 10:58; Start 10/13/20 at 02:00 Ondansetron HCl (Zofran) 4 mg PRN Q8HRS PRN IV NAUSEA/VOMITING 1ST CHOICE; Start 10/13/20 at 02:00; Stop 10/14/20 at 01:59 Ondansetron HCl (Zofran Odt) 4 mg PRN Q6HRS PRN PO NAUSEA/VOMITING; Start 10/13/20 at 09:15 Alprazolam (Xanax) 0.5 mg PRN Q12HRS PRN PO ANXIETY / AGITATION; Start 10/13/20 at 09:30 Amlodipine Besylate (Norvasc) 10 mg DAILY PO ; Start 10/14/20 at 09:00 Sertraline HCl (Zoloft) 50 mg HS PO ; Start 10/13/20 at 21:00 Pantoprazole Sodium (PROTONIX VIAL for IV PUSH) 40 mg DAILYAC IVP ; Start 10/14/20 at 07:30 Ibuprofen (Motrin) 200 mg 1X ONCE PO Last administered on 10/13/20at 10:58; St art 10/13/20 at 09:30; Stop 10/13/20 at 09:31; Status DC Active Scripts Active Omeprazole 40 Mg Capsule.dr 1 Cap PO DAILY 30 Days Reported [mobic] Xanax (Alprazolam) 0.5 Mg Tablet 0.5 Mg PO PRN Q6HRS PRN Naproxen 500 Mg Tablet 500 Mg PO PRN PRN Amlodipine Besylate 10 Mg Tablet 10 Mg PO DAILY Zoloft (Sertraline Hcl) 50 Mg Tablet 1 Tab PO HS Allergies Allergies: Coded Allergies: acetaminophen (Verified Allergy, Severe, SWELLING, 04/11/20) codeine (Verified Allergy, Severe, SWELLING, 04/11/20) oxycodone (Verified Allergy, Severe, SWELLING, 04/11/20) Penicillins (Verified Allergy, Intermediate, 04/11/20) hydrocodone (Verified Allergy, Intermediate, ALL OPIATES, 04/11/20) Swelling ROS Review of System Negative for fever, chills, weight loss, shortness of breath, chest pain, indigestion, hematochezia, melena, and dysuria. Full 14-point review of systems is negative. Physical Exam Physical Examination General: Well-developed, well-nourished white female in no acute distress HEENT: Normocephalic andatraumatic. Temporal arteriespulsatile and nontender. Neck: Supple without bruit, no meningismus Musculoskeletal: Stability:see neurologic. Gait exam:see neurologic. Tone:see neurologic.Strength:see neurologic. Neurological: Mental Status:intact, orientation, memory, attention span/concentration, language, fund of knowledge normal. Cranial Nerves:Pupils equal and reactive to light, extraocular movements areintact, visual kaur are full to conf rontation. Facial sensation is normal. There is no facial asymmetry. Vestibulo- ocular reflex is intact. Palate elevates and tongue protrudes in midline. All other cranial related problems are negative except as mentioned before.Reflexes:2+ and symmetric with flexor plantar responses. Motor:5/5 strength with normal tone and bulk. Coordination:Finger-nose finger and [id number] testing are normal. Rapid alternating movements and fine finger movements are intact. Gait:Normal, including tandem. Sensory:Normal pinprick, vibration, light touch, proprioception. Vitals VITALS Vital Signs Date Time Temp Pulse Resp B/P (MAP) Pulse Ox O2 Delivery O2 Flow Rate FiO2 10/13/20 11:00 98.5 91 16 99/54 (69) 97 Nasal Cannula 98.5 Labs Labs Laboratory Tests Test 10/12/20 23:20 10/12/20 23:26 10/13/20 01:44 10/13/20 05:35 Urine Opiates Screen Neg (NEG) Urine Methadone Screen Neg (NEG) Urine Barbiturates Neg (NEG) Urine Phencyclidine Screen Neg (NEG) Urine Amphetamine/Methamphetamine Neg (NEG) Urine Benzodiazepines Screen Pos (NEG) Urine Cocaine Screen Neg (NEG) Urine Cannabinoids Screen Pos (NEG) Urine Ethyl Alcohol Neg (NEG) White Blood Count 14.1 x10^3/uL (4.0-11.0) Red Blood Count 5.42 x10^6/uL (3.50-5.40) Hemoglobin 14.9 g/dL (12.0-15.5) Hematocrit 44.3 % (36.0-47.0) Mean Corpuscular Volume 82 fL (79-100) Mean Corpuscular Hemoglobin 28 pg (25-35) Mean Corpuscular Hemoglobin Concent 34 g/dL (31-37) Red Cell Distribution Width 14.9 % (11.5-14.5) Platelet Count 367 x10^3/uL (140-400) Neutrophils (%) (Auto) 89 % (31-73) Lymphocytes (%) (Auto) 8 % (24-48) Monocytes (%) (Auto) 3 % (0-9) Eosinophils (%) (Auto) 0 % (0-3) Basophils (%) (Auto) 0 % (0-3) Neutrophils # (Auto) 12.6 x10^3/uL (1.8-7.7) Lymphocytes # (Auto) 1.2 x10^3/uL (1.0-4.8) Monocytes # (Auto) 0.4 x10^3/uL (0.0-1.1) Eosinophils # (Auto) 0.0 x10^3/uL (0.0-0.7) Basophils # (Auto) 0.0 x10^3/uL (0.0-0.2) Segmented Neutrophils % 87 % (35-66) Band Neutrophils % 2 % (0-9) Lymphocytes % 8 % (24-48) Monocytes % 2 % (0-10) Metamyelocytes % 1 % (0-0) Platelet Estimate Adequate (ADEQUATE) Sodium Level 137 mmol/L (136-145) Potassium Level 3.5 mmol/L (3.5-5.1) Chloride Level 97 mmol/L (98-107) Carbon Dioxide Level 17 mmol/L (21-32) Anion Gap 23 (6-14) Blood Urea Nitrogen 14 mg/dL (7-20) Creatinine 1.4 mg/dL (0.6-1.0) Estimated GFR (Cockcroft-Gault) 39.3 BUN/Creatinine Ratio 10 (6-20) Glucose Level 172 mg/dL (70-99) Calcium Level 9.0 mg/dL (8.5-10.1) Total Bilirubin 0.5 mg/dL (0.2-1.0) Aspartate Amino Transf (AST/SGOT) 23 U/L (15-37) Alanine Aminotransferase (ALT/SGPT) 29 U/L (14-59) Alkaline Phosphatase 121 U/L (46-116) Troponin I Quantitative 0.077 ng/mL (0.000-0.055) 0.296 ng/mL (0.000-0.055) Total Protein 8.6 g/dL (6.4-8.2) Albumin 4.5 g/dL (3.4-5.0) Albumin/Globulin Ratio 1.1 (1.0-1.7) Ethyl Alcohol Level < 10 mg/dL (0-10) D-Dimer (Suzan) 0.45 ug/mlFEU (0.00-0.50) Test 10/13/20 08:00 10/13/20 10:30 Troponin I Quantitative 0.260 ng/mL (0.000-0.055) SARS-CoV-2 Antigen (Rapid) Negative (NEGATIVE) Laboratory Tests Test 10/12/20 23:20 10/12/20 23:26 10/13/20 01:44 10/13/20 05:35 Urine Opiates Screen Neg (NEG) Urine Methadone Screen Neg (NEG) Urine Barbiturates Neg (NEG) Urine Phencyclidine Screen Neg (NEG) Urine Amphetamine/Methamphetamine Neg (NEG) Urine Benzodiazepines Screen Pos (NEG) Urine Cocaine Screen Neg (NEG) Urine Cannabinoids Screen Pos (NEG) Urine Ethyl Alcohol Neg (NEG) White Blood Count 14.1 x10^3/uL (4.0-11.0) Red Blood Count 5.42 x10^6/uL (3.50-5.40) Hemoglobin 14.9 g/dL (12.0-15.5) Hematocrit 44.3 % (36.0-47.0) Mean Corpuscular Volume 82 fL (79-100) Mean Corpuscular Hemoglobin 28 pg (25-35) Mean Corpuscular Hemoglobin Concent 34 g/dL (31-37) Red Cell Distribution Width 14.9 % (11.5-14.5) Platelet Count 367 x10^3/uL (140-400) Neutrophils (%) (Auto) 89 % (31-73) Lymphocytes (%) (Auto) 8 % (24-48) Monocytes (%) (Auto) 3 % (0-9) Eosinophils (%) (Auto) 0 % (0-3) Basophils (%) (Auto) 0 % (0-3) Neutrophils # (Auto) 12.6 x10^3/uL (1.8-7.7) Lymphocytes # (Auto) 1.2 x10^3/uL (1.0-4.8) Monocytes # (Auto) 0.4 x10^3/uL (0.0-1.1) Eosinophils # (Auto) 0.0 x10^3/uL (0.0-0.7) Basophils # (Auto) 0.0 x10^3/uL (0.0-0.2) Segmented Neutrophils % 87 % (35-66) Band Neutrophils % 2 % (0-9) Lymphocytes % 8 % (24-48) Monocytes % 2 % (0-10) Metamyelocytes % 1 % (0-0) Platelet Estimate Adequate (ADEQUATE) Sodium Level 137 mmol/L (136-145) Potassium Level 3.5 mmol/L (3.5-5.1) Chloride Level 97 mmol/L (98-107) Carbon Dioxide Level 17 mmol/L (21-32) Anion Gap 23 (6-14) Blood Urea Nitrogen 14 mg/dL (7-20) Creatinine 1.4 mg/dL (0.6-1.0) Estimated GFR (Cockcroft-Gault) 39.3 BUN/Creatinine Ratio 10 (6-20) Glucose Level 172 mg/dL (70-99) Calcium Level 9.0 mg/dL (8.5-10.1) Total Bilirubin 0.5 mg/dL (0.2-1.0) Aspartate Amino Transf (AST/SGOT) 23 U/L (15-37) Alanine Aminotransferase (ALT/SGPT) 29 U/L (14-59) Alkaline Phosphatase 121 U/L (46-116) Troponin I Quantitative 0.077 ng/mL (0.000-0.055) 0.296 ng/mL (0.000-0.055) Total Protein 8.6 g/dL (6.4-8.2) Albumin 4.5 g/dL (3.4-5.0) Albumin/Globulin Ratio 1.1 (1.0-1.7) Ethyl Alcohol Level < 10 mg/dL (0-10) D-Dimer (Suzan) 0.45 ug/mlFEU (0.00-0.50) Test 10/13/20 08:00 10/13/20 10:30 Troponin I Quantitative 0.260 ng/mL (0.000-0.055) SARS-CoV-2 Antigen (Rapid) Negative (NEGATIVE) Images Images CT HEAD WO CONTRAST No intracranial hemorrhage. No midline shift. Basal cisterns patent. Ventricles and sulci are unremarkable. No acute osseous abnormality. Orbits and paranasal sinuses unremarkable. IMPRESSION: * No acute intracranial hemorrhage. Assessment/Plan Assessment/Plan Impression: Metabolic encephalopathy due to nausea, vomiting, dehydration, without evidence of any seizure, stroke, transient ischemic attack, or other primary neurological problem. CT of the head is negative and her exam is normal today. Elevated troponin, white blood count, creatinine, and hyperglycemia Positive benzodiazepines and cannabinoids in the urine drug screen Recommendations: Cardiac work-up No additional studies needed from the neurological point of view, such as EEG or MRI Thank you for letting me help with the patient's care. GENNA DAVIDSON MD October 13, 2020 14:08
[2020-10-13 15:00] VITALS: BP 110/59
--- NOTE | 2020-10-13 19:35 | NUR ---
Pt in bed assessment completed vss poc explained call light in reach pt c/o headache will resume care and continue to monitor pt. Call light in reach.
[2020-10-13 19:37] VITALS: BP 116/68
[2020-10-13] MEDS ORDERED: ATORVASTATIN CALCIUM 10 MG TABLET. PO SCH (21:00)
[2020-10-13] MEDS ORDERED: SERTRALINE 50 MG TABLET. PO SCH (21:00)
[2020-10-13 22:42] VITALS: BP 127/68
[2020-10-14 02:32] VITALS: BP 118/67
[2020-10-14 07:00] VITALS: BP 114/59
[2020-10-14] MEDS ORDERED: PANTOPRAZOLE IV PUSH 40 MG VIAL. IVP SCH (07:30)
[2020-10-14] MEDS ORDERED: ASPI-886 PO (07:41)
[2020-10-14] MEDS ORDERED: ONDA4TAB12 PO (07:41)
[2020-10-14] MEDS ORDERED: ATOR10TA60 PO (07:41)
[2020-10-14 07:50] LABS: BASO % 1 % (0-3); EOS # 0.1 x10^3/uL (0.0-0.7); EOS % 1 % (0-3); HEMATOCRIT 43.1 % (36.0-47.0); HEMOGLOBIN 14.2 g/dL (12.0-15.5); LYMPH # 1.9 x10^3/uL (1.0-4.8); LYMPH % 26 % (24-48); MEAN CORPUSCULAR HEMOGLOBIN 27 pg (25-35); MEAN CORPUSCULAR HGB CONC 33 g/dL (31-37); MEAN CORPUSCULAR VOLUME 82 fL (79-100); MONO # 0.5 x10^3/uL (0.0-1.1); MONO % 7 % (0-9); NEUT # 4.7 x10^3/uL (1.8-7.7); NEUT % 65 % (31-73); PLATELET COUNT 255 x10^3/uL (140-400); RED BLOOD COUNT 5.25 x10^6/uL (3.50-5.40); RED CELL DISTRIBUTION WIDTH 14.8 % (11.5-14.5); WHITE BLOOD COUNT 7.3 x10^3/uL (4.0-11.0)
[2020-10-14 07:59] LABS: ALBUMIN 3.8 g/dL (3.4-5.0); CREATININE 1.1 mg/dL (0.6-1.0); POTASSIUM 3.7 mmol/L (3.5-5.1); TOTAL BILIRUBIN 0.7 mg/dL (0.2-1.0); TOTAL PROTEIN 7.7 g/dL (6.4-8.2)
[2020-10-14] MEDS ORDERED: ASPIRIN ENTERIC COATED 81 MG TABLET.DR. PO SCH (08:00)
[2020-10-14] MEDS ORDERED: IBUPROFEN 200 MG TABLET. PO ONE (08:15)
[2020-10-14 08:37] VITALS: BP 114/59
--- NOTE | 2020-10-14 08:54 | PDOC ---
PROGRESS NOTES Date of Service DATE: 10/14/20 TIME: 08:52 Assessment Problems Medical Problems: (1) Altered mental status Status: Acute (2) Elevated troponin Status: Acute (3) Gastroenteritis Status: Acute Migraine headache, history of this Metabolic encephalopathy due to nausea, vomiting, dehydration, without evidence of any seizure, stroke, transient ischemic attack, or other primary neurological problem. CT of the head is negative and her exam is normal today. Elevated troponin, white blood count, creatinine, and hyperglycemia Positive benzodiazepines and cannabinoids in the urine drug screen Plan Fioricet as needed, discussed side effects. I am hesitant to try a triptan given her cardiac problems Cardiac work-up No additional studies needed from the neurological point of view, such as EEG or MRI Subjective Has a 6/10 headache, frontal, with photo phonophobia, mild nausea, she has had these before Objective Vital Signs Date Time Temp Pulse Resp B/P (MAP) Pulse Ox O2 Delivery O2 Flow Rate FiO2 10/14/20 08:37 65 114/59 10/14/20 07:00 97.4 18 97 Room Air 97.4 Intake and Output 10/14/20 07:00 Intake Total 1220 ml Output Total 200 ml Balance 1020 ml Intake Oral 1220 ml Output Urine Total 200 ml # Voids 1 Review of Relevant I have reviewed the following items rene (where applicable) has been applied. Labs Laboratory Tests Test 10/12/20 23:20 10/12/20 23:26 10/13/20 01:44 10/13/20 05:35 Urine Opiates Screen Neg (NEG) Urine Methadone Screen Neg (NEG) Urine Barbiturates Neg (NEG) Urine Phencyclidine Screen Neg (NEG) Urine Amphetamine/Methamphetamine Neg (NEG) Urine Benzodiazepines Screen Pos (NEG) Urine Cocaine Screen Neg (NEG) Urine Cannabinoids Screen Pos (NEG) Urine Ethyl Alcohol Neg (NEG) White Blood Count 14.1 x10^3/uL (4.0-11.0) Red Blood Count 5.42 x10^6/uL (3.50-5.40) Hemoglobin 14.9 g/dL (12.0-15.5) Hematocrit 44.3 % (36.0-47.0) Mean Corpuscular Volume 82 fL (79-100) Mean Corpuscular Hemoglobin 28 pg (25-35) Mean Corpuscular Hemoglobin Concent 34 g/dL (31-37) Red Cell Distribution Width 14.9 % (11.5-14.5) Platelet Count 367 x10^3/uL (140-400) Neutrophils (%) (Auto) 89 % (31-73) Lymphocytes (%) (Auto) 8 % (24-48) Monocytes (%) (Auto) 3 % (0-9) Eosinophils (%) (Auto) 0 % (0-3) Basophils (%) (Auto) 0 % (0-3) Neutrophils # (Auto) 12.6 x10^3/uL (1.8-7.7) Lymphocytes # (Auto) 1.2 x10^3/uL (1.0-4.8) Monocytes # (Auto) 0.4 x10^3/uL (0.0-1.1) Eosinophils # (Auto) 0.0 x10^3/uL (0.0-0.7) Basophils # (Auto) 0.0 x10^3/uL (0.0-0.2) Segmented Neutrophils % 87 % (35-66) Band Neutrophils % 2 % (0-9) Lymphocytes % 8 % (24-48) Monocytes % 2 % (0-10) Metamyelocytes % 1 % (0-0) Platelet Estimate Adequate (ADEQUATE) Sodium Level 137 mmol/L (136-145) Potassium Level 3.5 mmol/L (3.5-5.1) Chloride Level 97 mmol/L (98-107) Carbon Dioxide Level 17 mmol/L (21-32) Anion Gap 23 (6-14) Blood Urea Nitrogen 14 mg/dL (7-20) Creatinine 1.4 mg/dL (0.6-1.0) Estimated GFR (Cockcroft-Gault) 39.3 BUN/Creatinine Ratio 10 (6-20) Glucose Level 172 mg/dL (70-99) Calcium Level 9.0 mg/dL (8.5-10.1) Total Bilirubin 0.5 mg/dL (0.2-1.0) Aspartate Amino Transf (AST/SGOT) 23 U/L (15-37) Alanine Aminotransferase (ALT/SGPT) 29 U/L (14-59) Alkaline Phosphatase 121 U/L (46-116) Troponin I Quantitative 0.077 ng/mL (0.000-0.055) 0.296 ng/mL (0.000-0.055) Total Protein 8.6 g/dL (6.4-8.2) Albumin 4.5 g/dL (3.4-5.0) Albumin/Globulin Ratio 1.1 (1.0-1.7) Ethyl Alcohol Level < 10 mg/dL (0-10) D-Dimer (Suzan) 0.45 ug/mlFEU (0.00-0.50) Test 10/13/20 08:00 10/13/20 10:30 10/14/20 07:15 Troponin I Quantitative 0.260 ng/mL (0.000-0.055) SARS-CoV-2 RNA (GOPI) Negative (Negative) SARS-CoV-2 Antigen (Rapid) Negative (NEGATIVE) White Blood Count 7.3 x10^3/uL (4.0-11.0) Red Blood Count 5.25 x10^6/uL (3.50-5.40) Hemoglobin 14.2 g/dL (12.0-15.5) Hematocrit 43.1 % (36.0-47.0) Mean Corpuscular Volume 82 fL (79-100) Mean Corpuscular Hemoglobin 27 pg (25-35) Mean Corpuscular Hemoglobin Concent 33 g/dL (31-37) Red Cell Distribution Width 14.8 % (11.5-14.5) Platelet Count 255 x10^3/uL (140-400) Neutrophils (%) (Auto) 65 % (31-73) Lymphocytes (%) (Auto) 26 % (24-48) Monocytes (%) (Auto) 7 % (0-9) Eosinophils (%) (Auto) 1 % (0-3) Basophils (%) (Auto) 1 % (0-3) Neutrophils # (Auto) 4.7 x10^3/uL (1.8-7.7) Lymphocytes # (Auto) 1.9 x10^3/uL (1.0-4.8) Monocytes # (Auto) 0.5 x10^3/uL (0.0-1.1) Eosinophils # (Auto) 0.1 x10^3/uL (0.0-0.7) Basophils # (Auto) 0.0 x10^3/uL (0.0-0.2) Sodium Level 140 mmol/L (136-145) Potassium Level 3.7 mmol/L (3.5-5.1) Chloride Level 104 mmol/L (98-107) Carbon Dioxide Level 27 mmol/L (21-32) Anion Gap 9 (6-14) Blood Urea Nitrogen 24 mg/dL (7-20) Creatinine 1.1 mg/dL (0.6-1.0) Estimated GFR (Cockcroft-Gault) 52.0 BUN/Creatinine Ratio 22 (6-20) Glucose Level 81 mg/dL (70-99) Calcium Level 9.0 mg/dL (8.5-10.1) Total Bilirubin 0.7 mg/dL (0.2-1.0) Aspartate Amino Transf (AST/SGOT) 34 U/L (15-37) Alanine Aminotransferase (ALT/SGPT) 33 U/L (14-59) Alkaline Phosphatase 96 U/L (46-116) Total Protein 7.7 g/dL (6.4-8.2) Albumin 3.8 g/dL (3.4-5.0) Albumin/Globulin Ratio 1.0 (1.0-1.7) Laboratory Tests Test 10/13/20 10:30 10/14/20 07:15 SARS-CoV-2 RNA (GOPI) Negative (Negative) SARS-CoV-2 Antigen (Rapid) Negative (NEGATIVE) White Blood Count 7.3 x10^3/uL (4.0-11.0) Red Blood Count 5.25 x10^6/uL (3.50-5.40) Hemoglobin 14.2 g/dL (12.0-15.5) Hematocrit 43.1 % (36.0-47.0) Mean Corpuscular Volume 82 fL (79-100) Mean Corpuscular Hemoglobin 27 pg (25-35) Mean Corpuscular Hemoglobin Concent 33 g/dL (31-37) Red Cell Distribution Width 14.8 % (11.5-14.5) Platelet Count 255 x10^3/uL (140-400) Neutrophils (%) (Auto) 65 % (31-73) Lymphocytes (%) (Auto) 26 % (24-48) Monocytes (%) (Auto) 7 % (0-9) Eosinophils (%) (Auto) 1 % (0-3) Basophils (%) (Auto) 1 % (0-3) Neutrophils # (Auto) 4.7 x10^3/uL (1.8-7.7) Lymphocytes # (Auto) 1.9 x10^3/uL (1.0-4.8) Monocytes # (Auto) 0.5 x10^3/uL (0.0-1.1) Eosinophils # (Auto) 0.1 x10^3/uL (0.0-0.7) Basophils # (Auto) 0.0 x10^3/uL (0.0-0.2) Sodium Level 140 mmol/L (136-145) Potassium Level 3.7 mmol/L (3.5-5.1) Chloride Level 104 mmol/L (98-107) Carbon Dioxide Level 27 mmol/L (21-32) Anion Gap 9 (6-14) Blood Urea Nitrogen 24 mg/dL (7-20) Creatinine 1.1 mg/dL (0.6-1.0) Estimated GFR (Cockcroft-Gault) 52.0 BUN/Creatinine Ratio 22 (6-20) Glucose Level 81 mg/dL (70-99) Calcium Level 9.0 mg/dL (8.5-10.1) Total Bilirubin 0.7 mg/dL (0.2-1.0) Aspartate Amino Transf (AST/SGOT) 34 U/L (15-37) Alanine Aminotransferase (ALT/SGPT) 33 U/L (14-59) Alkaline Phosphatase 96 U/L (46-116) Total Protein 7.7 g/dL (6.4-8.2) Albumin 3.8 g/dL (3.4-5.0) Albumin/Globulin Ratio 1.0 (1.0-1.7) Medications Current Medications Aspirin (Aspirin Chewable) 324 mg 1X ONCE PO Last administered on 10/13/20at 01:03; Start 10/13/20 at 01:30; Stop 10/13/20 at 01:31; Status DC Sodium Chloride 1,000 ml @ 1,000 mls/hr 1X ONCE IV Last administered on 10/13/20at 01:02; Start 10/13/20 at 01:30; Stop 10/13/20 at 02:29; Status DC Enoxaparin Sodium (Lovenox 100mg Syringe) 100 mg Q12HR SQ Last administered on 10/13/20 10:58; Start 10/13/20 at 02:00; Stop 10/13/20 at 16:45; Status DC Ondansetron HCl (Zofran) 4 mg PRN Q8HRS PRN IV NAUSEA/VOMITING 1ST CHOICE; Start 10/13/20 at 02:00; Stop 10/14/20 at 01:59; Status DC Ondansetron HCl (Zofran Odt) 4 mg PRN Q6HRS PRN PO NAUSEA/VOMITING Last administered on 10/13/20 20:41; Start 10/13/20 at 09:15 Alprazolam (Xanax) 0.5 mg PRN Q12HRS PRN PO ANXIETY / AGITATION Last administered on 10/13/20 20:41; Start 10/13/20 at 09:30 Amlodipine Besylate (Norvasc) 10 mg DAILY PO Last administered on 10/14/20 08:37; Start 10/14/20 at 09:00 Sertraline HCl (Zoloft) 50 mg HS PO Last administered on 10/13/20 20:41; Start 10/13/20 at 21:00 Pantoprazole Sodium (PROTONIX VIAL for IV PUSH) 40 mg DAILYAC IVP Last a dministered on 10/14/20at 06:03; Start 10/14/20 at 07:30 Ibuprofen (Motrin) 200 mg 1X ONCE PO Last administered on 10/13/20 10:58; Start 10/13/20 at 09:30; Stop 10/13/20 at 09:31; Status DC Aspirin (Ecotrin) 81 mg DAILYWBKFT PO Last administered on 10/14/20at 08:38; Start 10/14/20 at 08:00 Atorvastatin Calcium (Lipitor) 10 mg QHS PO Last administered on 10/13/20 20:41; Start 10/13/20 at 21:00 Ibuprofen (Motrin) 200 mg 1X ONCE PO Last administered on 10/14/20at 08:37; Start 10/14/20 at 08:15; Stop 10/14/20 at 08:16; Status DC Acetaminophen (Tylenol) 500 mg 1X ONCE PO ; Start 10/14/20 at 09:00; Stop 10/14/20 at 09:01; Status UNV Active Scripts Active Omeprazole 40 Mg Capsule.dr 1 Cap PO DAILY 30 Days Reported [mobic] Xanax (Alprazolam) 0.5 Mg Tablet 0.5 Mg PO PRN Q6HRS PRN Naproxen 500 Mg Tablet 500 Mg PO PRN PRN Amlodipine Besylate 10 Mg Tablet 10 Mg PO DAILY Zoloft (Sertraline Hcl) 50 Mg Tablet 1 Tab PO HS Vitals/I & O Vital Sign - Last 24 Hours 10/13/20 10/13/20 10/13/20 10/13/20 11:00 15:00 19:35 19:37 Temp 98.5 98.1 98.1 98.5 98.1 98.1 Pulse 91 68 77 Resp 16 16 18 B/P (MAP) 99/54 (69) 110/59 (76) 116/68 (84) Pulse Ox 97 97 96 O2 Delivery Nasal Cannula Room Air Room Air Room Air 10/13/20 10/14/20 10/14/20 10/14/20 22:42 02:32 07:00 08:37 Temp 98.0 98.0 97.4 98.0 98.0 97.4 Pulse 71 71 65 65 Resp 18 18 18 B/P (MAP) 127/68 (87) 118/67 (84) 114/59 (77) 114/59 Pulse Ox 95 96 97 O2 Delivery Room Air Room Air Room Air Intake and Output 10/13/20 10/13/20 10/14/20 15:00 23:00 07:00 Intake Total 600 ml 420 ml 200 ml Output Total 200 ml Balance 400 ml 420 ml 200 ml Justicifation of Admission Dx: Justifications for Admission: Justification of Admission Dx: Yes GENNA DAVIDSON MD October 14, 2020 08:54
--- NOTE | 2020-10-14 08:55 | PDOC3 ---
Discharge Summary Date of Admission: October 12, 2020 Date of Discharge: October 14, 2020 Follow-Up: 3-5 days Admitting Diagnosis comment: AMS Nausea/vomiting Elevated troponin Brief Hospital Course Ms. Gonzalez is a 55-year-old female with past medical history of hy pertension, anxiety, depression, sleep apnea, GERD, low back pain, history of meth use, who presented to the emergency room for altered mental status at home. She reports having sudden onset nausea, vomiting, diarrhea on morning of admission, similar to what she experienced in March 2020 when she was last hospitalized. She had copious vomiting and diarrhea, which quickly resolved after admission. Her mental status returned to normal in the ER also. Labs in the ED were remarkable for mildly elevated troponin, which is believed to be from demand ischemia per Cardiology, which improved from peak, mild leukocytosis with left shift, mildly elevated creatinine at 1.4 with GFR of 39, baseline creatinine 0.8 and GFR 86, which improved to 1.1 on day of discharge. CT head was unremarkable. Urine drug screen was remarkable for benzodiazepines and marijuana. She is prescribed alprazolam for panic attacks at home. Cardiology did not recommend further work up as she has had a normal Echo and stress test recently. Upon further reflexion, patient notes that her sprayed the house heavily with insecticide shortly before her symptoms began. She believes that her JUUL device may have been sprayed as it was plugged in in the path of the spray. We discussed that her symptoms could be explained by organophosphate poisoning. Her symptoms have resolved. She will continue all medications as previously prescribed and she was encouraged to quit vaping and avoid exposure to insecticides. Discharge Medications Current Medications Aspirin (Aspirin Chewable) 324 mg 1X ONCE PO Last administered on 10/13/20at 01 :03; Start 10/13/20 at 01:30; Stop 10/13/20 at 01:31; Status DC Sodium Chloride 1,000 ml @ 1,000 mls/hr 1X ONCE IV Last administered on 10/13/20at 01:02; Start 10/13/20 at 01:30; Stop 10/13/20 at 02:29; Status DC Enoxaparin Sodium (Lovenox 100mg Syringe) 100 mg Q12HR SQ Last administered on 10/13/20at 10:58; Start 10/13/20 at 02:00; Stop 10/13/20 at 16:45; Status DC Ondansetron HCl (Zofran) 4 mg PRN Q8HRS PRN IV NAUSEA/VOMITING 1ST CHOICE; Start 10/13/20 at 02:00; Stop 10/14/20 at 01:59; Status DC Ondansetron HCl (Zofran Odt) 4 mg PRN Q6HRS PRN PO NAUSEA/VOMITING Last administered on 10/13/20at 20:41; Start 10/13/20 at 09:15 Alprazolam (Xanax) 0.5 mg PRN Q12HRS PRN PO ANXIETY / AGITATION Last administered on 10/13/20at 20:41; Start 10/13/20 at 09:30 Amlodipine Besylate (Norvasc) 10 mg DAILY PO Last administered on 10/14/20 08:37; Start 10/14/20 at 09:00 Sertraline HCl (Zoloft) 50 mg HS PO Last administered on 10/13/20at 20:41; Start 10/13/20 at 21:00 Pantoprazole Sodium (PROTONIX VIAL for IV PUSH) 40 mg DAILYAC IVP Last administered on 10/14/20at 06:03; Start 10/14/20 at 07:30 Ibuprofen (Motrin) 200 mg 1X ONCE PO Last administered on 10/13/20at 10:58; Start 10/13/20 at 09:30; Stop 10/13/20 at 09:31; Status DC Aspirin (Ecotrin) 81 mg DAILYWBKFT PO Last administered on 10/14/20at 08:38; Start 10/14/20 at 08:00 Atorvastatin Calcium (Lipitor) 10 mg QHS PO Last administered on 10/13/20at 20:41; Start 10/13/20 at 21:00 Ibuprofen (Motrin) 200 mg 1X ONCE PO Last administered on 10/14/20at 08:37; Start 10/14/20 at 08:15; Stop 10/14/20 at 08:16; Status DC Active Scripts Active Omeprazole 40 Mg Capsule.dr 1 Cap PO DAILY 30 Days Reported [mobic] Xanax (Alprazolam) 0.5 Mg Tablet 0.5 Mg PO PRN Q6HRS PRN Naproxen 500 Mg Tablet 500 Mg PO PRN PRN Amlodipine Besylate 10 Mg Tablet 10 Mg PO DAILY Zoloft (Sertraline Hcl) 50 Mg Tablet 1 Tab PO HS Vital Signs Vital Signs Date Time Temp Pulse Resp B/P (MAP) Pulse Ox O2 Delivery O2 Flow Rate FiO2 10/14/20 08:37 65 114/59 10/14/20 07:00 97.4 18 97 Room Air 97.4 Labs Laboratory Tests Test 10/12/20 23:20 10/12/20 23:26 10/13/20 01:44 10/13/20 05:35 Urine Opiates Screen Neg (NEG) Urine Methadone Screen Neg (NEG) Urine Barbiturates Neg (NEG) Urine Phencyclidine Screen Neg (NEG) Urine Amphetamine/Methamphetamine Neg (NEG) Urine Benzodiazepines Screen Pos (NEG) Urine Cocaine Screen Neg (NEG) Urine Cannabinoids Screen Pos (NEG) Urine Ethyl Alcohol Neg (NEG) White Blood Count 14.1 x10^3/uL (4.0-11.0) Red Blood Count 5.42 x10^6/uL (3.50-5.40) Hemoglobin 14.9 g/dL (12.0-15.5) Hematocrit 44.3 % (36.0-47.0) Mean Corpuscular Volume 82 fL (79-100) Mean Corpuscular Hemoglobin 28 pg (25-35) Mean Corpuscular Hemoglobin Concent 34 g/dL (31-37) Red Cell Distribution Width 14.9 % (11.5-14.5) Platelet Count 367 x10^3/uL (140-400) Neutrophils (%) (Auto) 89 % (31-73) Lymphocytes (%) (Auto) 8 % (24-48) Monocytes (%) (Auto) 3 % (0-9) Eosinophils (%) (Auto) 0 % (0-3) Basophils (%) (Auto) 0 % (0-3) Neutrophils # (Auto) 12.6 x10^3/uL (1.8-7.7) Lymphocytes # (Auto) 1.2 x10^3/uL (1.0-4.8) Monocytes # (Auto) 0.4 x10^3/uL (0.0-1.1) Eosinophils # (Auto) 0.0 x10^3/uL (0.0-0.7) Basophils # (Auto) 0.0 x10^3/uL (0.0-0.2) Segmented Neutrophils % 87 % (35-66) Band Neutrophils % 2 % (0-9) Lymphocytes % 8 % (24-48) Monocytes % 2 % (0-10) Metamyelocytes % 1 % (0-0) Platelet Estimate Adequate (ADEQUATE) Sodium Level 137 mmol/L (136-145) Potassium Level 3.5 mmol/L (3.5-5.1) Chloride Level 97 mmol/L (98-107) Carbon Dioxide Level 17 mmol/L (21-32) Anion Gap 23 (6-14) Blood Urea Nitrogen 14 mg/dL (7-20) Creatinine 1.4 mg/dL (0.6-1.0) Estimated GFR (Cockcroft-Gault) 39.3 BUN/Creatinine Ratio 10 (6-20) Glucose Level 172 mg/dL (70-99) Calcium Level 9.0 mg/dL (8.5-10.1) Total Bilirubin 0.5 mg/dL (0.2-1.0) Aspartate Amino Transf (AST/SGOT) 23 U/L (15-37) Alanine Aminotransferase (ALT/SGPT) 29 U/L (14-59) Alkaline Phosphatase 121 U/L (46-116) Troponin I Quantitative 0.077 ng/mL (0.000-0.055) 0.296 ng/mL (0.000-0.055) Total Protein 8.6 g/dL (6.4-8.2) Albumin 4.5 g/dL (3.4-5.0) Albumin/Globulin Ratio 1.1 (1.0-1.7) Ethyl Alcohol Level < 10 mg/dL (0-10) D-Dimer (Suzan) 0.45 ug/mlFEU (0.00-0.50) Test 10/13/20 08:00 10/13/20 10:30 10/14/20 07:15 Troponin I Quantitative 0.260 ng/mL (0.000-0.055) SARS-CoV-2 RNA (GOPI) Negative (Negative) SARS-CoV-2 Antigen (Rapid) Negative (NEGATIVE) White Blood Count 7.3 x10^3/uL (4.0-11.0) Red Blood Count 5.25 x10^6/uL (3.50-5.40) Hemoglobin 14.2 g/dL (12.0-15.5) Hematocrit 43.1 % (36.0-47.0) Mean Corpuscular Volume 82 fL (79-100) Mean Corpuscular Hemoglobin 27 pg (25-35) Mean Corpuscular Hemoglobin Concent 33 g/dL (31-37) Red Cell Distribution Width 14.8 % (11.5-14.5) Platelet Count 255 x10^3/uL (140-400) Neutrophils (%) (Auto) 65 % (31-73) Lymphocytes (%) (Auto) 26 % (24-48) Monocytes (%) (Auto) 7 % (0-9) Eosinophils (%) (Auto) 1 % (0-3) Basophils (%) (Auto) 1 % (0-3) Neutrophils # (Auto) 4.7 x10^3/uL (1.8-7.7) Lymphocytes # (Auto) 1.9 x10^3/uL (1.0-4.8) Monocytes # (Auto) 0.5 x10^3/uL (0.0-1.1) Eosinophils # (Auto) 0.1 x10^3/uL (0.0-0.7) Basophils # (Auto) 0.0 x10^3/uL (0.0-0.2) Sodium Level 140 mmol/L (136-145) Potassium Level 3.7 mmol/L (3.5-5.1) Chloride Level 104 mmol/L (98-107) Carbon Dioxide Level 27 mmol/L (21-32) Anion Gap 9 (6-14) Blood Urea Nitrogen 24 mg/dL (7-20) Creatinine 1.1 mg/dL (0.6-1.0) Estimated GFR (Cockcroft-Gault) 52.0 BUN/Creatinine Ratio 22 (6-20) Glucose Level 81 mg/dL (70-99) Calcium Level 9.0 mg/dL (8.5-10.1) Total Bilirubin 0.7 mg/dL (0.2-1.0) Aspartate Amino Transf (AST/SGOT) 34 U/L (15-37) Alanine Aminotransferase (ALT/SGPT) 33 U/L (14-59) Alkaline Phosphatase 96 U/L (46-116) Total Protein 7.7 g/dL (6.4-8.2) Albumin 3.8 g/dL (3.4-5.0) Albumin/Globulin Ratio 1.0 (1.0-1.7) Laboratory Tests Test 10/13/20 10:30 10/14/20 07:15 SARS-CoV-2 RNA (GOPI) Negative (Negative) SARS-CoV-2 Antigen (Rapid) Negative (NEGATIVE) White Blood Count 7.3 x10^3/uL (4.0-11.0) Red Blood Count 5.25 x10^6/uL (3.50-5.40) Hemoglobin 14.2 g/dL (12.0-15.5) Hematocrit 43.1 % (36.0-47.0) Mean Corpuscular Volume 82 fL (79-100) Mean Corpuscular Hemoglobin 27 pg (25-35) Mean Corpuscular Hemoglobin Concent 33 g/dL (31-37) Red Cell Distribution Width 14.8 % (11.5-14.5) Platelet Count 255 x10^3/uL (140-400) Neutrophils (%) (Auto) 65 % (31-73) Lymphocytes (%) (Auto) 26 % (24-48) Monocytes (%) (Auto) 7 % (0-9) Eosinophils (%) (Auto) 1 % (0-3) Basophils (%) (Auto) 1 % (0-3) Neutrophils # (Auto) 4.7 x10^3/uL (1.8-7.7) Lymphocytes # (Auto) 1.9 x10^3/uL (1.0-4.8) Monocytes # (Auto) 0.5 x10^3/uL (0.0-1.1) Eosinophils # (Auto) 0.1 x10^3/uL (0.0-0.7) Basophils # (Auto) 0.0 x10^3/uL (0.0-0.2) Sodium Level 140 mmol/L (136-145) Potassium Level 3.7 mmol/L (3.5-5.1) Chloride Level 104 mmol/L (98-107) Carbon Dioxide Level 27 mmol/L (21-32) Anion Gap 9 (6-14) Blood Urea Nitrogen 24 mg/dL (7-20) Creatinine 1.1 mg/dL (0.6-1.0) Estimated GFR (Cockcroft-Gault) 52.0 BUN/Creatinine Ratio 22 (6-20) Glucose Level 81 mg/dL (70-99) Calcium Level 9.0 mg/dL (8.5-10.1) Total Bilirubin 0.7 mg/dL (0.2-1.0) Aspartate Amino Transf (AST/SGOT) 34 U/L (15-37) Alanine Aminotransferase (ALT/SGPT) 33 U/L (14-59) Alkaline Phosphatase 96 U/L (46-116) Total Protein 7.7 g/dL (6.4-8.2) Albumin 3.8 g/dL (3.4-5.0) Albumin/Globulin Ratio 1.0 (1.0-1.7) Allergies Allergies Coded Allergies Type Severity Reaction Last Updated Verified codeine Allergy Severe SWELLING 04/11/20 Yes oxycodone Allergy Severe SWELLING 04/11/20 Yes Penicillins Allergy Intermediate 04/11/20 Yes hydrocodone Allergy Intermediate ALL OPIATES 04/11/20 Yes Disposition/Orders: D/C to Home Justicifation of Admission Dx: Justifications for Admission: Justification of Admission Dx: Yes ANDERSON DANG MD October 14, 2020 08:55
[2020-10-14] MEDS ORDERED: BUTALB/APAP/CAFEIN 50/325/40MG TABLET. PO PRN (09:00)
[2020-10-14] MEDS ORDERED: amLODIPine BESYLATE 10 MG TABLET PO SCH (09:00)
[2020-10-14] MEDS ORDERED: ACETAMINOPHEN 500 MG TABLET PO ONE (09:00)
--- NOTE | 2020-10-14 10:57 | NUR ---
DISCHARGED PATIENT HOME. DISCHARGE INSTRUCTIONS GIVEN. PIV AND HEART MONITOR REMOVED. ESCORTED PATIENT OFF UNIT PER WHEELCHAIR INTO A PRIVATE VEHICLE.
--- NOTE | 2020-10-14 11:10 | PDOC ---
Date of Service: DATE: 10/14/20 TIME: 11:08 Subjective: Subjective: I saw her earlier this morning before discharge. Has a headache, no GI concerns - no abd pain, n/v, or diarrhea. Objective: Vital Signs: Vital Signs Date Time Temp Pulse Resp B/P (MAP) Pulse Ox O2 Delivery O2 Flow Rate FiO2 10/14/20 08:37 65 114/59 10/14/20 08:00 Room Air 10/14/20 07:00 97.4 18 97 97.4 Labs: Laboratory Tests Test 10/14/20 07:15 White Blood Count 7.3 x10^3/uL Red Blood Count 5.25 x10^6/uL Hemoglobin 14.2 g/dL Hematocrit 43.1 % Mean Corpuscular Volume 82 fL Mean Corpuscular Hemoglobin 27 pg Mean Corpuscular Hemoglobin Concent 33 g/dL Red Cell Distribution Width 14.8 % Platelet Count 255 x10^3/uL Neutrophils (%) (Auto) 65 % Lymphocytes (%) (Auto) 26 % Monocytes (%) (Auto) 7 % Eosinophils (%) (Auto) 1 % Basophils (%) (Auto) 1 % Neutrophils # (Auto) 4.7 x10^3/uL Lymphocytes # (Auto) 1.9 x10^3/uL Monocytes # (Auto) 0.5 x10^3/uL Eosinophils # (Auto) 0.1 x10^3/uL Basophils # (Auto) 0.0 x10^3/uL Sodium Level 140 mmol/L Potassium Level 3.7 mmol/L Chloride Level 104 mmol/L Carbon Dioxide Level 27 mmol/L Anion Gap 9 Blood Urea Nitrogen 24 mg/dL Creatinine 1.1 mg/dL Estimated GFR (Cockcroft-Gault) 52.0 BUN/Creatinine Ratio 22 Glucose Level 81 mg/dL Calcium Level 9.0 mg/dL Total Bilirubin 0.7 mg/dL Aspartate Amino Transf (AST/SGOT) 34 U/L Alanine Aminotransferase (ALT/SGPT) 33 U/L Alkaline Phosphatase 96 U/L Total Protein 7.7 g/dL Albumin 3.8 g/dL Albumin/Globulin Ratio 1.0 PE: GEN: NAD LUNGS: CTAB HEART: RRR ABD: NABS, S/ND/NT NEURO/PSYCH: A & O 3 A/P: N/v, upper abd pain, diarrhea, AMS - resolved - extensive GI and cardiac workup per consult note Migraines -- DC per primary. Stop marijuana. Justicifation of Admission Dx: Justifications for Admission: Justification of Admission Dx: Yes HENRIETTA ERNST October 14, 2020 11:10
== END 2020-10-14 10:51 | disposition home or self-care (01) ==
LOC: ER 23:14 → 2 SOUTH 10-13 01:03
PROVIDERS: ADMIT Family Medicine; ATTEND Family Medicine
DX: R41.82 Altered mental status, unspecified (principal); Z20.822 Contact with and (suspected) exposure to COVID-19; I10 Essential (primary) hypertension; K21.9 Gastro-esophageal reflux disease without esophagitis; F41.0 Panic disorder [episodic paroxysmal anxiety]; G47.33 Obstructive sleep apnea (adult) (pediatric); G43.909 Migraine, unspecified, not intractable, without status migrainosus; G93.41 Metabolic encephalopathy; E86.0 Dehydration; I48.91 Unspecified atrial fibrillation; I25.10 Atherosclerotic heart disease of native coronary artery without angina pectoris; I25.2 Old myocardial infarction; I24.8 Other forms of acute ischemic heart disease; J44.9 Chronic obstructive pulmonary disease, unspecified; F31.9 Bipolar disorder, unspecified; F12.90 Cannabis use, unspecified, uncomplicated; K40.90 Unilateral inguinal hernia, without obstruction or gangrene, not specified as recurrent; N17.9 Acute kidney failure, unspecified; R32 Unspecified urinary incontinence; Z87.11 Personal history of peptic ulcer disease; Z85.43 Personal history of malignant neoplasm of ovary; Z87.891 Personal history of nicotine dependence; K76.0 Fatty (change of) liver, not elsewhere classified; Z90.710 Acquired absence of both cervix and uterus
CPT/HCPCS: 36415; 70450; 80053; 80307; 84484; 85007; 85025; 85379; 87338; 87426; 93005; 93971; 96361; 96372; 96374; 99285; C9113; G0378; G0480; J1650; J7030; U0003; U0005; 96375; G0379

== ENCOUNTER → 2020-11-01 | Outpatient (CLI) | payer OTHER ==
[2020-10-14 08:37] VITALS: BP 114/59
[~2020-11-01] MED LIST changes: +ALPR0.5T PO; +ASPI-886 PO; +ATOR10TA60 PO; +IOHEXOL 240 MG/ML 50ML VIAL. PO ONE; +IOHEXOL 300 MG/ML 100ML VIAL. IV ONE; +ONDA4TAB12 PO; +mobic
--- NOTE | 2020-11-01 10:49 | KCIC ---
EXAM: CT ABDOMEN/PELVIS WITH CONTRAST. HISTORY: Right lower quadrant, diarrhea. TECHNIQUE: Computed tomography of the abdomen and pelvis was performed after the intravenous administ ration of iodinated contrast. One or more of the following individualized dose reduction techniques w ere utilized for this examination: 1. Automated exposure control. 2. Adjustment of the mA and/or kV according to patient size. 3. Use of iterative reconstruction technique. COMPARISON: None. FINDINGS: Lung windows through the visualized portions of the bases reveal calcified granulomas measu ring up to 1.5 cm in the right lower lobe. There is atelectasis or scarring in the lingula. Bone wind ows reveal no suspicious lesions. The gallbladder is surgically absent. There are calcified granulomas in the spleen. The liver, pancre as, adrenal glands and kidneys are unremarkable. The uterus is surgically absent. The appendix is not inflamed. There is no small bowel obstruction. T here are no pathologically enlarged lymph nodes. IMPRESSION: 1. Normal appendix. No cause for pain is identified. Electronically signed by: Arie Urbina MD (11/01/2020 10:47 AM) [id number]
== END ==
LOC: KCIC CT 09:05
PROVIDERS: ATTEND Internal Medicine Gastroenterology
DX: R19.7 Diarrhea, unspecified (principal); Z90.49 Acquired absence of other specified parts of digestive tract
CPT/HCPCS: 74177; Q9966; Q9967

== ENCOUNTER → 2020-11-01 | Outpatient (CLI) | payer OTHER ==
[2020-10-14 08:37] VITALS: BP 114/59
[~2020-11-01] MED LIST changes: -IOHEXOL 240 MG/ML 50ML VIAL. PO ONE; -IOHEXOL 300 MG/ML 100ML VIAL. IV ONE
--- NOTE | 2020-11-01 10:37 | KCIC ---
EXAM: Cervical spine 4 views. HISTORY: Neck pain, cervical fusion. COMPARISON: None. FINDINGS: Anterior cervical discectomy and fusion changes at C6-7 appear solid. Retrolisthesis at C5- 6 measures 3 mm. There is mild reversal of the normal cervical lordosis at C4-5. Anterolisthesis at C 3-4 measures 2 mm. Degenerative disc disease is moderate to severe at C5-6 and mild at C4-5. No fract ures are identified. Facet and uncovertebral osteoarthritis is moderate to severe diffusely, worst fr om C3 through C5. There is no prevertebral soft tissue swelling. Aortic and right carotid atherosclerotic calcifications are noted. IMPRESSION: 1. C6-7 anterior cervical discectomy and fusion. 2. Retrolisthesis at C5-6 measures 3.4 mm. Anterolisthesis at C3-4 measures 2 mm. Reversal of the esteban dosis from C3 through C5. 3. Degenerative disc disease is moderate to severe at C5-6 and mild at C4-5. Electronically signed by: Arie Urbina MD (11/01/2020 10:35 AM) [id number]
== END ==
LOC: KCIC 09:01
PROVIDERS: ATTEND Family Medicine
DX: M50.022 Cervical disc disorder at C5-C6 level with myelopathy (principal); M43.12 Spondylolisthesis, cervical region; Z98.1 Arthrodesis status
CPT/HCPCS: 72040

== ENCOUNTER → 2020-11-23 | Day surgery (SDC) | payer OTHER ==
[~2020-11-23] VITALS: Ht 162.6 cm; Wt 231.0 kg
[~2020-11-23] MED LIST changes: +HYDROmorphone 2 MG/ML VIAL IVP PRN; +IV RINGERS,LACTATED 1000ML 1,000 ML IV SCH; +LIDOCAINE 2% PF 5 ML VIAL. ONE; +MORPHINE SULFATE 2 MG/ML INJ. IVP PRN; +PROCHLORPERAZINE 10 MG/2 ML VIAL. IVP PRN; +PROPOFOL 10 MG/ML (20ML) VIAL. IV ONE; +fentaNYL PF VIAL 100 MCG/2 ML VIAL IVP PRN
[2020-11-23 07:04] VITALS: BP 107/69
[2020-11-23 08:20] VITALS: BP 147/75
== END | disposition home or self-care (01) ==
LOC: ENDOS 06:27
PROVIDERS: ATTEND Internal Medicine Gastroenterology
DX: R10.31 Right lower quadrant pain (principal); R19.7 Diarrhea, unspecified; K57.30 Diverticulosis of large intestine without perforation or abscess without bleeding; K64.0 First degree hemorrhoids; K63.89 Other specified diseases of intestine; I48.91 Unspecified atrial fibrillation; I10 Essential (primary) hypertension; J44.9 Chronic obstructive pulmonary disease, unspecified; K21.9 Gastro-esophageal reflux disease without esophagitis; M19.90 Unspecified osteoarthritis, unspecified site; F41.9 Anxiety disorder, unspecified; F32.9 Major depressive disorder, single episode, unspecified; Z90.49 Acquired absence of other specified parts of digestive tract; Z98.890 Other specified postprocedural states; Z79.899 Other long term (current) drug therapy; Z87.891 Personal history of nicotine dependence; Z88.5 Allergy status to narcotic agent; Z88.8 Allergy status to other drugs, medicaments and biological substances; Z88.0 Allergy status to penicillin; Z82.49 Family history of ischemic heart disease and other diseases of the circulatory system; Z72.89 Other problems related to lifestyle
CPT/HCPCS: 45378; J2704

== ENCOUNTER → 2020-12-14 | Outpatient (CLI) | payer OTHER ==
[2020-11-23 08:20] VITALS: BP 147/75
[~2020-12-14] MED LIST changes: -HYDROmorphone 2 MG/ML VIAL IVP PRN; -IV RINGERS,LACTATED 1000ML 1,000 ML IV SCH; -LIDOCAINE 2% PF 5 ML VIAL. ONE; -MORPHINE SULFATE 2 MG/ML INJ. IVP PRN; -PROCHLORPERAZINE 10 MG/2 ML VIAL. IVP PRN; -PROPOFOL 10 MG/ML (20ML) VIAL. IV ONE; -fentaNYL PF VIAL 100 MCG/2 ML VIAL IVP PRN
--- NOTE | 2020-12-14 14:51 | KCIC ---
Examination: Small Bowel Series: History: Diarrhea, right lower quadrant abdominal pain, vomiting Findings: The preliminary film is unremarkable. Following administration of oral barium, images were performed at timed intervals. . The duodenal loop appears normal. The small bowel mucosal pattern is normal. Th ere is no stricture or dilatation. The terminal ileum appears normal. Impression: Negative small bowel series. Electronically signed by: Jai Ny MD (12/14/2020 2:49 PM) [id number]
== END ==
LOC: KCIC 08:39
PROVIDERS: ATTEND Internal Medicine Gastroenterology
DX: R10.31 Right lower quadrant pain (principal); R19.7 Diarrhea, unspecified
CPT/HCPCS: 74250